=== PATIENT | female | born 1960 | race African-American/Black ===

== ENCOUNTER 2017-11-20 15:49 | Emergency (ER) | payer OTHER ==
[2017-11-20 16:50] LABS: #Eosinphils 0.1 thou/uL (0.0-0.7); #Lymphocytes 2.2 thou/uL (1.20-3.40); #Monocytes 0.5 thou/uL (0.11-0.59); #Neutrophils 3.1 thou/uL (1.40-6.50); %Basophils 0.5 % (0.0-1.0); %Eosinophils 1.5 % (0.0-10.0); %Lymphocytes 37.1 % (21.0-51.0); %Monocytes 7.6 % (0.0-10.0); Hematocrit 44.8 % (36.0-47.0); Mean Platelet Volume 8.7 fL (7.4-10.4); Red Blood Cell (RBC) Count 4.85 mill/uL (4.20-5.40); White Blood Cell (WBC) Count 5.8 thou/uL (4.8-10.8)
--- NOTE | 2017-11-20 17:06 | RAD ---
AP VIEW CHEST: 11/20/17 HISTORY: Dizziness. Syncope. AP view chest is obtained on 11/20/17. Comparison made to a previous exam from 08/27/14. AP view chest demonstrates the lungs to be well aerated. No evidence of active intrathoracic disease seen. No evidence of effusions, pneumonia, or pneumothorax seen. IMPRESSION: Unremarkable AP view chest. POS: [facility]
[2017-11-20 17:12] LABS: ALT (SGPT) 23 U/L (8-55); AST (SGOT) 25 U/L (5-34); Alkaline Phosphatase 157 U/L (40-150); Anion Gap 17 mmol/L (10-20); BUN (Urea Nitrogen) 9 mg/dL (9.8-20.1); Bilirubin, Total 0.4 mg/dL (0.2-1.2); CK (CPK) 70 U/L (29-168); Calc. Creatinine Clearance 0 mL/min (70-130); Calcium 9.7 mg/dL (7.8-10.44); Carbon Dioxide 21 mmol/L (22-29); Chloride 104 mmol/L (98-107); Estimated GFR-MDRD 90; Globulin 5.1 g/dL (2.4-3.5); Protein, Total 9.3 g/dL (6.0-8.3)
[2017-11-20 17:16] LABS: Troponin I 0.028 ng/mL (< 0.028)
== END 2017-11-21 01:03 | disposition home or self-care (01) ==
LOC: ERS 15:49
DX: R55 Syncope and collapse (principal); G40.909 Epilepsy, unspecified, not intractable, without status epilepticus; Z79.899 Other long term (current) drug therapy
CPT/HCPCS: 36415; 71010; 80053; 82553; 84484; 85025; 93005

== ENCOUNTER 2017-11-23 23:06 | Emergency (ER) | payer OTHER ==
[2017-11-24 01:35] LABS: Hematocrit 41.3 % (36.0-47.0); Red Blood Cell (RBC) Count 4.41 mill/uL (4.20-5.40); White Blood Cell (WBC) Count 5.7 thou/uL (4.8-10.8)
[2017-11-24 01:36] LABS: Anion Gap 14 mmol/L (10-20); BUN (Urea Nitrogen) 7 mg/dL (9.8-20.1); Calc. Creatinine Clearance 0 mL/min (70-130); Calcium 9.4 mg/dL (7.8-10.44); Carbon Dioxide 28 mmol/L (22-29); Chloride 102 mmol/L (98-107); Estimated GFR-MDRD 68
[2017-11-24 01:45] LABS: Neutrophil 40 % (42-75)
== END 2017-11-24 02:05 | disposition left against medical advice (07) ==
LOC: ERS 23:06
DX: Z53.21 Procedure and treatment not carried out due to patient leaving prior to being seen by health care provider (principal)
CPT/HCPCS: 36415; 80048; 85025; 86850; 86900; 86901

== ENCOUNTER 2017-12-09 19:06 | Inpatient (IN) | payer OTHER ==
[2017-12-09 19:42] LABS: #Basophils 0.1 thou/uL (0.0-0.2); #Eosinphils 0.1 thou/uL (0.0-0.7); #Lymphocytes 2.3 thou/uL (1.20-3.40); #Monocytes 0.3 thou/uL (0.11-0.59); #Neutrophils 2.7 thou/uL (1.40-6.50); %Basophils 1.5 % (0.0-1.0); %Monocytes 4.6 % (0.0-10.0); %Neutrophils 48.9 % (42.0-75.0); Hemoglobin 13.6 g/dL (12.0-16.0); Mean Corpuscular HGB CONC 34.1 g/dL (32.0-36.0); Mean Corpuscular Volume 93.6 fl (81.0-99.0); Mean Platelet Volume 8.3 fL (7.4-10.4); Platelet Count 279 thou/uL (130-400); RBC Distribution Width 13.8 % (11.5-14.5); Red Blood Cell (RBC) Count 4.26 mill/uL (4.20-5.40); White Blood Cell (WBC) Count 5.4 thou/uL (4.8-10.8)
[2017-12-09 20:06] LABS: ALT (SGPT) 31 U/L (8-55); AST (SGOT) 29 U/L (5-34); Albumin 3.8 g/dL (3.5-5.0); Alkaline Phosphatase 132 U/L (40-150); Anion Gap 15 mmol/L (10-20); BUN (Urea Nitrogen) 6 mg/dL (9.8-20.1); Bilirubin, Total 0.3 mg/dL (0.2-1.2); CK (CPK) 68 U/L (29-168); Calc. Creatinine Clearance 0 mL/min (70-130); Calcium 9.4 mg/dL (7.8-10.44); Carbon Dioxide 26 mmol/L (22-29); Chloride 104 mmol/L (98-107); Estimated GFR-MDRD Greater than 90; Globulin 5.2 g/dL (2.4-3.5); Glucose 108 mg/dL (70-105); Lipase 21 U/L (8-78); Potassium 3.5 mmol/L (3.5-5.1); Sodium 141 mmol/L (136-145)
[2017-12-09 20:09] LABS: CKMB 0.8 ng/mL (0-6.6); Troponin I 0.025 ng/mL (< 0.028)
--- NOTE | 2017-12-09 21:09 | RAD ---
PORTABLE CHEST ONE VIEW 12/09/17 at 8:45 p.m. HISTORY: Chest pain. FINDINGS: Comparison made with exam of 11/20/17. The heart size is normal. The lungs are expanded without focal areas of consolidation, pneumothorax o r pleural effusions. IMPRESSION: No radiographic evidence of acute cardiopulmonary process. POS: [facility]
[2017-12-10 00:50] LABS: Troponin I 0.031 ng/mL (< 0.028)
[2017-12-10] MEDS ORDERED: Clopidogrel Bisulfate 75 MG TAB ONE (01:29)
[2017-12-10] MEDS ORDERED: Bacitracin Zinc 1 Packet ONE (02:01)
[2017-12-10] MEDS ORDERED: Sucralfate 1 GM TAB PO SCH (02:30)
[2017-12-10] MEDS ORDERED: OXcarbazepine 300 MG TAB PO SCH ×3 (02:30→15:00)
[2017-12-10] MEDS ORDERED: Sucralfate 1 GM/10 ML UDCUP ONE (02:39)
[2017-12-10] MEDS ORDERED: Sucralfate 1 GM/10 ML UDCUP PO SCH (02:45)
[2017-12-10] MEDS ORDERED: Primidone 250 MG TAB PO SCH ×3 (03:00→15:00)
[2017-12-10 04:57] LABS: Troponin I 0.026 ng/mL (< 0.028)
[2017-12-10] MEDS ORDERED: Famotidine 20 MG TAB ONE (06:24)
[2017-12-10 09:11] VITALS: BMI 30.2
[2017-12-10] MEDS ORDERED: Ondansetron ODT 4 MG TAB PO PRN (10:20)
[2017-12-10] MEDS ORDERED: HYDROcodone/Acetaminophen 5/325 mg Tablet PO PRN (10:20)
[2017-12-10] MEDS ORDERED: Acetaminophen 325 MG TAB PO PRN (10:20)
[2017-12-10] MEDS ORDERED: Enoxaparin Sodium 40 MG/0.4 ML SYRINGE SC SCH (10:30)
[2017-12-10] MEDS ORDERED: FLU VACC QS2017-18 36 mo. & older 0.5 ML SYRINGE IM ONE (10:30)
[2017-12-10] MEDS ORDERED: OXcarbazepine 600 MG TAB PO SCH (10:45)
--- NOTE | 2017-12-10 13:51 | NM ---
CARDIAC SPECT WITH EF AND WALL MOTION: HISTORY: A 57-year-old female with chest pain and history of stroke. Adenosine sestamibi study is performed. The patient was injected with 27.0 mCi Technetium 99m sestamibi intravenously for stress images and t he patient was injected with 9.0 mCi Technetium 99m sestamibi intravenously for resting images. Multiple SPECT images in the short axis, vertical long axis, and horizontal long axis demonstrate no scan evidence for infarct or ischemia. TID 0.97. LHR 0.59. EDV 58 mL. EF is 73%. MYOCARDIAL PERFUSION WALL MOTION: Wall motion is normal. IMPRESSION: Normal cardiac SPECT with ejection fraction and wall motion. POS: [facility]
[2017-12-10] MEDS ORDERED: Enoxaparin Sodium 40 MG/0.4 ML SYRINGE ONE (13:52)
[2017-12-10 14:00] VITALS: BP 120/73; TEMP 97.9
--- NOTE | 2017-12-10 15:54 | HP ---
DATE OF ADMISSION: 12/10/2017 PRIMARY CARE PHYSICIAN: [facility] CHIEF COMPLAINT: Chest pain. HISTORY OF PRESENT ILLNESS: Ms. Finch is a 57-year-old female with history of seizure disorder, cereb rovascular disease, breast cancer and hyperlipidemia who presented to emergency department for acute onset of chest pain at 1800. She presented to the emergency department on 12/09/2017. She described the pain as being a sharp pain in the center of her chest. It was alleviated by sublingual nitro x1 and has not recurred. She denies any sweats, shortness of breath, nausea, vomiting, or diaphoresis. She has had some subjective fevers off and on, some abdominal pain, but no diarrhea or constipation. She has had a cough that is nonproductive. No hemoptysis. No shortness of breath. She states she had a stress test some time ago, but it does shocked repeatedly, she did have some kind of EMG or bee ething. She has had some history of rectal bleeding which is currently being worked up as an outpati ent. No other current complaints. PAST MEDICAL HISTORY: 1. Hyperlipidemia. 2. History of cerebrovascular disease, status post CVA in 2012. 3. Breast cancer, status post surgery and chemo remotely. 4. Seizure disorder. States last seizure was this morning 12/09/2017 because she did not get her me dicines on time in the ER. PAST SURGICAL HISTORY: 1. Cholecystectomy. 2. Mastectomy on the left. 3. Left lower extremity fracture repair. 4. Bilateral tubal ligation. HOME MEDICATIONS: 1. Primidone 250 mg p.o. t.i.d. 2. Oxcarbazepine 600 mg p.o. t.i.d. ALLERGIES: To ASPIRIN. She does not know what her reaction was. Last echocardiogram was in 2013 showed EF of 60%-65%, mild MR, PI, TR. FAMILY HISTORY: Negative for clotting or bleeding disorder. No immune dysfunction. Multiple family members with coronary has high blood pressure and diabetes. SOCIAL HISTORY: Negative for habits x3. REVIEW OF SYSTEMS: A 10-point review of systems was performed, negative for all systems except as st ated as per HPI. PHYSICAL EXAMINATION: VITAL SIGNS: Temperature 98.0, pulse 76, blood pressure 97/62, respiratory rate 18, satting 97% on r oom air. GENERAL: She is awake. She is alert. She is oriented x3. She is disheveled looking, -Ameri can female, appears in no acute distress. HEENT: Normocephalic, atraumatic. Pupils equal, react bilaterally. Mucous membranes moist. She shea s no visible lesions. No thrush. NECK: Supple. She has no evidence of JVD, thyromegaly, no carotid upstrokes. There are no bruits. CHEST: Lungs are clear. She has no wheezing, no rales, no rhonchi. LUNGS: Good air movement. Symmetrical chest excursion. No prolonged expiratory phase. CARDIOVASCULAR: She has normal S1, S2. No S3, S4. No audible murmurs. ABDOMEN: Obese, it is nontender, nondistended. She has no hepatosplenomegaly. There is no rebound, rigidity or guarding. There is normoactive bowel sounds present in all 4 quadrants. EXTREMITIES: No cyanosis, clubbing with trace pedal edema. She has 2+ peripheral pulses, dorsalis p chava and posterior tibial. SKIN: Warm with no appreciated rashes or lesions. MUSCULOSKELETAL: Normal to inspection. She has no inflamed joints. No palpable effusions. NEUROLOGIC: Cranial nerves II-XII are grossly intact. She has a normal speech pattern, she has no f ocal neurologic deficit 5/5 strength. LABORATORY EVALUATION: CMP is normal. Creatinine 0.76, BUN is 6, chloride 104, potassium 3.5 and ca lcium 9.4. Glucose 108. Liver functions normal. CBC is normal with a white blood count of 5.4, hem oglobin 13.6, hematocrit 39.9, platelet count of 279,000. CK-MB on presentation was 0.8, troponin I 0.025. Repeat troponins 0.031 and 0.026. Her chest x-ray is unremarkable. ASSESSMENT AND PLAN: 1. Chest pain, suspect noncardiac, negative biomarkers x3. We will get a nuclear stress test. 2. Hyperlipidemia, not on therapy. 3. History of cerebrovascular disease, status post cerebrovascular accident in 2012. She is allergi c to ASPIRIN and is not on anticoagulants or antiplatelets. 4. History of breast cancer, status post surgery and chemotherapy remotely. 5. History of seizure disorder, on oxcarbazepine and primidone. We will place her on observation. We will get a stress test today and if negative, we will let her g o home this afternoon.
--- NOTE | 2017-12-10 16:03 | DIS ---
DATE OF ADMISSION: 12/09/2017 DATE OF DISCHARGE: 12/10/2017 PRIMARY CARE PHYSICIAN: [facility] The patient was placed in observation before midnight on 12/09/2017 and sent home at 1500 hours. DISCHARGE DIAGNOSES: 1. Noncardiac chest pain. 2. Hyperlipidemia. 3. History of cerebrovascular disease. 4. History of breast cancer. 5. Seizure disorder. CONSULTATIONS: None. PROCEDURES: Nuclear stress test on 12/10/2017 that showed no areas of reversible ischemia and no isc hemic ST-T changes on EKG. HOSPITAL COURSE: Ms. Finch is a 57-year-old female who presented in the emergency de partment with acute onset of chest pain. It was located in the center of her chest and resolved with nitro. She was seen in the emergency department, workup negative and was placed in observation. She remained in the ER hold overnight, serial cardiac biomarkers were negative, and we were called fo r admission. Admitted the patient this morning. Since then she has had a nuclear stress test that was negative fo r inducible ischemia, reversible abnormalities or wall motion changes, and no ST-T changes on EKG. T he pain had resolved, not recurred, and she was discharged home in stable condition with outpatient cheyanne stevens. PHYSICAL EXAMINATION: The patient was seen and examined on the day of discharge. DISCHARGE PLAN AND DISPOSITION: Discussed with the patient at bedside. DISCHARGE MEDICATIONS: 1. Oxcarbazepine 600 mg p.o. t.i.d. 2. Primidone 250 mg p.o. t.i.d. DISCHARGE CONDITION: Good. DISPOSITION: Discharged home via private vehicle. DISCHARGE DIET: Heart healthy recommended. DISCHARGE ACTIVITY: As tolerated. FOLLOWUP APPOINTMENTS: Primary care physician within a week.
[2017-12-10] MEDS ORDERED: Famotidine 20 MG TAB PO SCH (21:00)
[2017-12-11] MEDS ORDERED: Enoxaparin Sodium 40 MG/0.4 ML SYRINGE SC SCH (09:00)
== END 2017-12-10 15:30 | disposition home or self-care (01) | DRG 313 ==
LOC: ERS 19:06 → UNDOADMIN 12-10 00:30 → ERHOLD 12-10 00:30
PROVIDERS: ADMIT Internal Medicine; ATTEND Internal Medicine
DX: R07.89 Other chest pain (principal); E78.5 Hyperlipidemia, unspecified; G40.909 Epilepsy, unspecified, not intractable, without status epilepticus; Z86.73 Personal history of transient ischemic attack (TIA), and cerebral infarction without residual deficits; Z85.3 Personal history of malignant neoplasm of breast
CPT/HCPCS: 36415; 71045; 78452; 80053; 82553; 83690; 84484; 85025; 93005; 93017; 94760; A9500; J1650

== ENCOUNTER 2018-01-07 12:55 | Emergency (ER) | payer OTHER | END 2018-01-07 13:55 | disposition home or self-care (01) | LOC: ERS 12:55 | DX: K02.9 Dental caries, unspecified (principal) | CPT/HCPCS: 99282 ==

== ENCOUNTER 2018-02-10 12:12 | Emergency (ER) | payer OTHER ==
[2018-02-10] MEDS ORDERED: Acetaminophen 500 MG TAB ONE ×2 (13:46→13:47)
== END 2018-02-10 13:45 | disposition home or self-care (01) ==
LOC: ERS 12:12
DX: K02.9 Dental caries, unspecified (principal); M79.1 Myalgia; Z86.73 Personal history of transient ischemic attack (TIA), and cerebral infarction without residual deficits
CPT/HCPCS: 99283

== ENCOUNTER 2018-04-05 12:03 | Emergency (ER) | payer OTHER ==
[2018-04-05] MEDS ORDERED: Acetaminophen 500 MG TAB ONE (13:20)
== END 2018-04-05 13:30 | disposition home or self-care (01) ==
LOC: ERS 12:03
DX: K03.81 Cracked tooth (principal); K02.9 Dental caries, unspecified; G40.909 Epilepsy, unspecified, not intractable, without status epilepticus; Z85.3 Personal history of malignant neoplasm of breast; Z86.73 Personal history of transient ischemic attack (TIA), and cerebral infarction without residual deficits
CPT/HCPCS: 99282

== ENCOUNTER 2018-05-14 10:14 | Outpatient (CLI) | payer OTHER | END 2018-05-14 10:15 | disposition home or self-care (01) | LOC: BICULT 10:14 | PROVIDERS: ATTEND Internal Medicine Gastroenterology | DX: Z12.31 Encounter for screening mammogram for malignant neoplasm of breast (principal); R94.5 Abnormal results of liver function studies; Z80.3 Family history of malignant neoplasm of breast; Z85.3 Personal history of malignant neoplasm of breast; Z90.49 Acquired absence of other specified parts of digestive tract; R93.2 Abnormal findings on diagnostic imaging of liver and biliary tract | CPT/HCPCS: 76705; 77067 ==

== ENCOUNTER 2018-05-31 16:38 | Emergency (ER) | payer OTHER | END 2018-05-31 17:35 | disposition home or self-care (01) | LOC: ERS 16:38 | DX: R07.89 Other chest pain (principal); Z87.891 Personal history of nicotine dependence; Z79.899 Other long term (current) drug therapy | CPT/HCPCS: 93005; 94760 ==

== ENCOUNTER 2019-04-16 10:11 | Emergency (ER) | payer OTHER ==
[2019-04-16] MEDS ORDERED: Acetaminophen 500 MG TAB ONE (10:46)
--- NOTE | 2019-04-17 14:37 | EKG ---
Test Reason : ER INDICATION Blood Pressure : / mmHG Vent. Rate : 064 BPM Atrial Rate : 064 BPM P-R Int : 160 ms QRS Dur : 068 ms QT Int : 446 ms P-R-T Axes : 040 000 005 degrees QTc Int : 460 ms Normal sinus rhythm Normal ECG Confirmed by KIM CABRERA D.O. ([id number]), web editor JOSHUA GARCIA ([id number]) on 04/17/2019 2:37:01 PM Referred By: REI Confirmed By:KIM CABRERA D.O.
== END 2019-04-16 10:55 | disposition home or self-care (01) ==
LOC: ERS 10:11
DX: R07.89 Other chest pain (principal); M54.2 Cervicalgia; M25.572 Pain in left ankle and joints of left foot; Z87.891 Personal history of nicotine dependence; Z79.899 Other long term (current) drug therapy
CPT/HCPCS: 93005

== ENCOUNTER 2019-04-16 11:58 | Outpatient (CLI) | payer OTHER ==
--- NOTE | 2019-04-16 12:45 | ULT ---
Abdominal ultrasound: 04/16/2019 COMPARISON: None HISTORY: Abnormal liver function tests TECHNIQUE: Multiplanar grayscale sonographic imaging of the abdomen obtained. FINDINGS: The pancreas is not well seen secondary to bowel gas. The hepatic parenchyma is echogenic and heterogeneous, limiting sonographic assessment. No discrete f ocal liver lesion is evident. Common bile duct measures approximately 5-6 mm. Gallbladder is surgically absent. Detailed assessment of the right kidney is limited. Right kidney measures approximately 9.1 cm in general scrap worker niocaudal dimension and demonstrates no stone, hydronephrosis, or mass. Left kidney measures 8.6 cm craniocaudal dimension and demonstrates no stone hydronephrosis or mass. Upper pole of left kidney is obscured by bowel gas. Spleen measures approximately 8.4 cm, within normal limits. Overall detail is limited secondary to body habitus and suboptimal patient mobility. IMPRESSION: Technically limited examination, demonstrating mild heterogeneity of the hepatic parenchy ma with no biliary dilatation. Status post cholecystectomy.
== END 2019-04-16 11:59 | disposition home or self-care (01) ==
LOC: ULT 11:58
PROVIDERS: ATTEND Physician Assistant Medical
DX: R94.5 Abnormal results of liver function studies (principal); R93.2 Abnormal findings on diagnostic imaging of liver and biliary tract; Z90.49 Acquired absence of other specified parts of digestive tract
CPT/HCPCS: 76700

== ENCOUNTER 2019-04-26 02:13 | Observation (INO) | payer OTHER ==
[2019-04-26 03:42] LABS: ALT (SGPT) 16 U/L (8-55); AST (SGOT) 17 U/L (5-34); Alkaline Phosphatase 143 U/L (40-150); Anion Gap 15 mmol/L (10-20); BUN (Urea Nitrogen) 8 mg/dL (9.8-20.1); Bilirubin, Total 0.2 mg/dL (0.2-1.2); Calc. Creatinine Clearance 0 mL/min (70-130); Calcium 8.9 mg/dL (7.8-10.44); Carbon Dioxide 25 mmol/L (22-29); Chloride 105 mmol/L (98-107); Estimated GFR-MDRD Greater than 90; Globulin 4.3 g/dL (2.4-3.5); Glucose 93 mg/dL (70-105); Potassium 3.8 mmol/L (3.5-5.1); Protein, Total 8.3 g/dL (6.0-8.3); Sodium 141 mmol/L (136-145)
[2019-04-26 03:46] LABS: Eosinophils 1 % (0-10); Hemoglobin 12.5 g/dL (12.0-16.0); Lymphocytes 47 % (21-51); MDiff Complete? YES; Mean Corpuscular HGB CONC 34.1 g/dL (32.0-36.0); Mean Corpuscular Hemoglobin 31.5 pg (27.0-31.0); Mean Corpuscular Volume 92.3 fL (78.0-98.0); Mean Platelet Volume 9.2 fL (7.4-10.4); Monocytes 4 % (0-10); Neutrophil 47 % (42-75); Platelet Count 200 thou/uL (130-400); RBC Distribution Width 13.1 % (11.5-14.5); Red Blood Cell (RBC) Count 3.98 mill/uL (4.20-5.40); White Blood Cell (WBC) Count 6.5 thou/uL (4.8-10.8)
[2019-04-26 05:20] LABS: Troponin I 0.045 ng/mL (< 0.028)
--- NOTE | 2019-04-26 06:40 | PDOC.FPRHP ---
- History of Present Illness Chief Complaint: headache History of Present Illness: 58 yo AAF with PMH of prediabetes, HLD, seizure d/o, and breast CA s/p chemotherapy and surgery presenting to ER with CC of ZARCO. Pt is a terrible historian and unable to consistently answer questions. Pt unable to describe or qualify her ZARCO but notes it improved with intervention in the ER. Pt had CT brain which was normal and refused LP. At initial visit with triage nurse, pt stated she had CP. When asked, she states prior to arriving she had a sharp pain on the right side of her chest that improved with no intervention. No associated symptoms and no recurrence. Pt states "I was not worried about the chest pain." ED Course: Pt had lab work and imaging. No medications or interventions made. - Allergies/Adverse Reactions Allergies Allergy/AdvReac Type Severity Reaction Status Date / Time aspirin Allergy Unknown Verified 07/04/14 20:38 - Home Medications Medication Instructions Recorded Confirmed Type OXcarbazepine [Trileptal] 600 mg PO TID #0 tab 07/06/14 04/26/19 Rx Primidone [Mysoline] 375 mg PO BID 12/10/17 04/26/19 History - History PMHx: Seizure d/o, last seizure in 2017 per pt, HLD, prediabetes, breast CA PSHx: Cholecystectomy, left mastectomy, LLE ortho repair, BTL FHx: unable to provide Social: Denies tobacco, EtOH, or illicit drug use. - Review of Systems General: denies: fever/chills, fatigue ENT: denies: nasal congestion, rhinorrhea Respiratory: denies: cough, shortness of breath Cardiovascular: reports: chest pain. denies: palpitation, paroxysmal nocturnal dyspnea Gastrointestinal: denies: nausea, vomiting, diarrhea Musculoskeletal: reports: pain Neurological: denies: syncope, seizure - Vital signs BP: 134/81 HR: 81 RR: 17 Tmax: 98.1 Pox: 99% on RA Wt: 73kg - Physical Exam Constitutional: NAD, awake, alert and oriented HEENT: normocephalic and atraumatic, conjunctiva clear, oropharynx clear Heart: RRR, normal S1/S2, no murmurs/rubs/gallops, no edema Lungs: CTAB, no respiratory distress, good air movement Abdomen: soft, non-tender Musculoskeletal: normal structure, ROM grossly normal Neurological: no focal deficit Psychiatric: normal mood and affect FMR H&P: Results - Labs Result Diagrams: 04/26/19 03:08 04/26/19 03:08 Lab results: WBC 6.5 thou/uL (4.8-10.8) 04/26/19 03:08 Hgb 12.5 g/dL (12.0-16.0) 04/26/19 03:08 Hct 36.7 % (36.0-47.0) 04/26/19 03:08 MCV 92.3 fL (78.0-98.0) 04/26/19 03:08 Plt Count 200 thou/uL (130-400) 04/26/19 03:08 Sodium 141 mmol/L (136-145) 04/26/19 03:08 Potassium 3.8 mmol/L (3.5-5.1) 04/26/19 03:08 Chloride 105 mmol/L (98-107) 04/26/19 03:08 Carbon Dioxide 25 mmol/L (22-29) 04/26/19 03:08 BUN 8 mg/dL (9.8-20.1) L 04/26/19 03:08 Creatinine 0.76 mg/dL (0.6-1.1) 04/26/19 03:08 Glucose 93 mg/dL (70-105) 04/26/19 03:08 Calcium 8.9 mg/dL (7.8-10.44) 04/26/19 03:08 Total Bilirubin 0.2 mg/dL (0.2-1.2) 04/26/19 03:08 AST 17 U/L (5-34) 04/26/19 03:08 ALT 16 U/L (8-55) 04/26/19 03:08 Alkaline Phosphatase 143 U/L (40-150) 04/26/19 03:08 CK-MB (CK-2) 1.0 ng/mL (0-6.6) 04/26/19 03:08 Serum Total Protein 8.3 g/dL (6.0-8.3) 04/26/19 03:08 Albumin 4.0 g/dL (3.5-5.0) 04/26/19 03:08 - EKG Interpretation EKG: NSR, no ST changes - Radiology Interpretation CT scan - head Status: image reviewed by me (No acute process) FMR H&P: A/P - Problem List (1) Elevation of cardiac enzymes Current Visit: No Status: Acute Code(s): R74.8 - ABNORMAL LEVELS OF OTHER SERUM ENZYMES (2) Seizure disorder Current Visit: Yes Status: Acute Code(s): G40.909 - EPILEPSY, UNSP, NOT INTRACTABLE, WITHOUT STATUS EPILEPTICUS - Plan 1. Elevated troponin -Pt denies CP and had resolution of symptoms that precipitated ER visit without any intervention whatsoever. Incidentally, pt found to have indeterminate troponin. -Will short stay/observe pt for repeat cardiac enzymes. -Pt had normal stress test in December 2017. HEART score of 2 due to age and HLD. -Other risk factor stratification can be done in outpatient setting. 2. Seizure disorder -Resume home meds. -Seizure precautions. Disposition/LOS: Observation for anticipated length of stay less than two midnights. Addendum - Attending - Attending Attestation Date/Time: 04/26/19 1029 I personally evaluated the patient and discussed the management with Dr. Stock. I agree with the History, Examination, Assessment and Plan documented above with any addition or exceptions noted below. Patient here with incidental lab finding and patient denies chest pain. No EKG changes. R/O ACS with serial troponins and will discharge home with any further workup to be done in outpatient setting.
[2019-04-26] MEDS ORDERED: Ondansetron PF 4 MG/2 ML Vial IVP PRN ×2 (07:11→07:14)
[2019-04-26] MEDS ORDERED: Acetaminophen 325 MG TAB PO PRN ×2 (07:12→07:14)
[2019-04-26] MEDS ORDERED: Ondansetron ODT 4 MG TAB PO PRN ×2 (07:12→07:14)
[2019-04-26] MEDS ORDERED: Lorazepam 2 MG/ML VIAL SLOW IVP PRN (07:14)
[2019-04-26 08:09] VITALS: BMI 35.6
[2019-04-26 08:39] LABS: Troponin I 0.057 ng/mL (< 0.028)
[2019-04-26] MEDS ORDERED: OXcarbazepine 300 MG TAB PO SCH (09:00)
[2019-04-26] MEDS ORDERED: Primidone 250 MG TAB PO SCH (09:00)
[2019-04-26] MEDS ORDERED: Enoxaparin Sodium 40 MG/0.4 ML SYRINGE SC SCH (09:00)
[2019-04-26 11:36] LABS: CKMB 1.1 ng/mL (0-6.6)
--- NOTE | 2019-04-26 11:46 | CT ---
PRELIMINARY REPORT/[facility]/EMERGENCY AFTER HOURS PROCEDURE: EXAM: CT Head Without Contrast EXAM DATE/TIME: 04/26/2019 3:49 AM CLINICAL HISTORY: 58 years old, female; Pain and signs and symptoms; Dizziness; Patient HX: 58 year old female with com plaint of bilateral frontal throbbing feeling to the head that started approximately 2-3 hours prior to arrival in er after arguing with her grandson. Patient states headache presented as gradual in marcia ure, similar to previous headaches and doesn't report worse headache of life. Patient denies any asso ciated nausea, vomiting, speech changes, chest pain, or shortness of breath. No photophobia or phonop hobia TECHNIQUE: Imaging protocol: Axial computed tomography images of the head without contrast. COMPARISON: No relevant prior studies available. FINDINGS: Brain: Scattered areas of hypoattenuation, likely chronic small vessel ischemic change, demyelination , or gliosis. Mild cerebellar atrophy. No mass, hemorrhage, or acute origin. Ventricles: Normal. Bones/joints: Normal. Sinuses: Normal as visualized. Mastoid air cells: Normal as visualized. Soft tissues: Unremarkable. Vasculature: Atherosclerotic vascular calcifications. IMPRESSION: No acute intracranial abnormality. Thank you for allowing us to participate in the care of your patient. Dictated and Authenticated by: Mazin Morales MD 04/26/2019 4:03 AM Central Time ([place] & [place]) FINAL REPORT CT BRAIN WITHOUT CONTRAST: I agree with the preliminary report given by Dr. Mazin Morales of [facility]. POS: [facility]
[2019-04-26 12:14] VITALS: BP 114/65; TEMP 98.1
--- NOTE | 2019-04-26 16:02 | DIS ---
DATE OF ADMISSION: 04/26/2019 DATE OF DISCHARGE: 04/26/2019 ADMITTING ATTENDING: Bandar Ravi MD DISCHARGE ATTENDING: Bandar Ravi MD ADMITTING RESIDENT: Franky Stock MD DISCHARGE RESIDENT: Gretchen Gayle MD CONSULTS: None. PROCEDURES: None. PRIMARY DIAGNOSES: 1. Atypical chest pain, likely musculoskeletal pain 2. Headache. 3. Elevated troponin. SECONDARY DIAGNOSIS: Seizure disorder. DISCHARGE MEDICATIONS: 1. Primidone 375 mg p.o. b.i.d. 2. Trileptal 600 mg p.o. t.i.d. DISCONTINUED MEDICATIONS: None HISTORY OF PRESENT ILLNESS AND HOSPITAL COURSE: This is a 58-year-old female who presented to the ER due to a headache. The patient's headache resolved spontaneously without any intervention. Then, the patient casually mentioned to the nurse that she had previously been having a sharp right-sided chest pain that resolved on its own as well, only lasted a few seconds. The patient did not have any current chest pain at the time of the ER visit. However, the patient had cardiac enzymes that were checked and her troponin was mildly elevated at 0.033. The patient chronically has mild elevation of her troponins. These were trended throughout her hospitalization and it peaked at 0.057. The patient had no chest pain during her hospitalization. The patient had a heart score of 2 and the patient had a prior normal stress test in 2018. As the troponin downtrended and there were no EKG changes, the patient was discharged home with instructions to follow up outpatient for an outpatient stress test. DISPOSITION: Stable. DISCHARGE INSTRUCTIONS: 1. Location: Home. 2. Diet: Heart healthy. 3. Activity: As tolerated. 4. Followup: Follow up with [facility] within 7 days for possible outpatient stress test. Job ID: [id number] MTDD
== END 2019-04-26 14:47 | disposition home or self-care (01) ==
LOC: ERS 02:13 → 2SW 06:14
PROVIDERS: ADMIT Family Medicine; ATTEND Family Medicine
DX: R74.8 Abnormal levels of other serum enzymes (principal); R07.89 Other chest pain; R51 Headache; G40.909 Epilepsy, unspecified, not intractable, without status epilepticus; E78.5 Hyperlipidemia, unspecified; R73.03 Prediabetes; Z85.3 Personal history of malignant neoplasm of breast; Z79.899 Other long term (current) drug therapy; Z88.8 Allergy status to other drugs, medicaments and biological substances
CPT/HCPCS: 36415; 70450; 80053; 82553; 84484; 85025; 93005; 94760; G0378

== ENCOUNTER 2019-05-07 18:32 | Observation (INO) | payer OTHER ==
--- NOTE | 2019-05-07 18:50 | RAD ---
RADIOGRAPH CHEST 2 VIEWS: DATE: 05/07/2019 HISTORY: Chest pain FINDINGS: There is no airspace density, pulmonary edema, pleural effusion, pneumothorax, or cardiomegaly. IMPRESSION: No acute cardiopulmonary findings.
[2019-05-07 19:18] LABS: #Basophils 0.1 thou/uL (0.0-0.2); #Eosinphils 0.1 thou/uL (0.0-0.7); #Lymphocytes 2.4 thou/uL (1.20-3.40); #Monocytes 0.5 thou/uL (0.11-0.59); %Basophils 1.3 % (0.0-1.0); %Eosinophils 2.4 % (0.0-10.0); %Lymphocytes 39.6 % (21.0-51.0); %Monocytes 7.5 % (0.0-10.0); %Neutrophils 49.3 % (42.0-75.0); Hemoglobin 12.8 g/dL (12.0-16.0); Mean Corpuscular HGB CONC 33.9 g/dL (32.0-36.0); Mean Corpuscular Volume 91.4 fL (78.0-98.0); Mean Platelet Volume 8.9 fL (7.4-10.4); Platelet Count 234 thou/uL (130-400); RBC Distribution Width 13.1 % (11.5-14.5); Red Blood Cell (RBC) Count 4.13 mill/uL (4.20-5.40); White Blood Cell (WBC) Count 6.1 thou/uL (4.8-10.8)
[2019-05-07 19:47] LABS: ALT (SGPT) 13 U/L (8-55); AST (SGOT) 17 U/L (5-34); Alkaline Phosphatase 150 U/L (40-150); Anion Gap 15 mmol/L (10-20); BUN (Urea Nitrogen) 6 mg/dL (9.8-20.1); Bilirubin, Total 0.2 mg/dL (0.2-1.2); Calc. Creatinine Clearance 0 mL/min (70-130); Calcium 8.9 mg/dL (7.8-10.44); Carbon Dioxide 25 mmol/L (23-31); Chloride 101 mmol/L (98-107); Estimated GFR-MDRD Greater than 90; Globulin 5.1 g/dL (2.4-3.5); Glucose 76 mg/dL (80-115); Potassium 3.6 mmol/L (3.5-5.1); Protein, Total 9.1 g/dL (6.0-8.3); Sodium 137 mmol/L (136-145)
[2019-05-07 20:09] LABS: CKMB 0.9 ng/mL (0-6.6)
--- NOTE | 2019-05-07 22:29 | CT ---
CT BRAIN NONCONTRAST: DATE: 05/07/2019 HISTORY: 59-year-old female with vertigo FINDINGS: There is no evidence of acute intra-axial or extra-axial hemorrhage. There is no midline shift or any other mass effect. There is no extra-axial fluid collection. There is no evidence of obstructive hydrocephalus. Calvarium is intact. There is diffuse brain parenchymal volume loss. There are low att enuation areas in the white matter. These are nonspecific, but in a patient of this age, they are probably chronic ischemic white matter changes due to microvascular atherosclerosis. The cerebellum i s diffusely atrophic. There are 2 partially healed, occluded right-sided katya holes, one in the right frontal bone and one in the right parietal bone. There is no interval change overall. IMPRESSION: 1) No acute intracranial findings. 2) cerebellar atrophy. Differential diagnosis includes chronic Dilantin use and chronic ethanol abuse . 3) chronic ischemic white matter changes. 4) 2 old right-sided katya holes.
[2019-05-07 22:33] LABS: Acetaminophen Less than 6.0 mcg/mL (10.0-30.0); Alcohol Less than 10 mg/dL (Less than 10); Salicylate Less than 8.0 mg/dL (15.0-30.0)
[2019-05-07 22:43] LABS: Amphetamine Not Detected (NotDetected); Barbiturates Screen Detected (NotDetected); Benzodiazepine Screen Not Detected (NotDetected); Cocaine Metabolite Screen Not Detected (NotDetected); Medtox Control Line Valid? VALID (VALID); Medtox Reader # READER 1; Methadone Not Detected (NotDetected); Methamphetamine Not Detected (NotDetected); Opiate Screen Not Detected (NotDetected); Oxycodone Screen Not Detected (NotDetected); Phencyclidine (PCP) Not Detected (NotDetected); THC/Cannabinoid Screen Not Detected (NotDetected); Tricyclic Screen Not Detected (NotDetected)
--- NOTE | 2019-05-07 22:43 | PDOC.FPRHP ---
- History of Present Illness Chief Complaint: dizziness and chest pain History of Present Illness: 59YOF with a PMH significant for HLD and a seizure disorder who presented to the ER initially due to "dizziness" that began earlier today when she was leaving a friend's house. Of note, the patient was oriented x3 on exam but slightly drowsy appearing and could not recall many details when providing a history. She describes the dizziness as lightheadedness rather than vertigo as she denies feeling like the room is spinning. She denies any associated nausea or vomiting and also denies any falls or seizures. The patient reports that she then called a medicare sales and service representative who instructed her to go to the ER for evaluation. In addition, while in the waiting room at the ER the patient reported that she developed sudden onset crushing substernal chest pain that lasted a few minutes before subsiding on its own without any interventions. She denied any associated symptoms other than her persistent dizziness. She denies any previous h/o UT but has had a stroke. Of note, the patient was recently discharged on 04/26/19 after being admitted for almost the exact same presentation. Per chart review she has yet to follow- up with her PCP and it was recommended upon discharge from that stay that she f/ u with within 1 week of d/c for a likely OP stress test. ED Course: plavix 75 mg - Allergies/Adverse Reactions Allergies Allergy/AdvReac Type Severity Reaction Status Date / Time aspirin Allergy Unknown Verified 07/04/14 20:38 - Home Medications Medication Instructions Recorded Confirmed Type OXcarbazepine [Trileptal] 600 mg PO TID #0 tab 07/06/14 05/08/19 Rx Primidone [Mysoline] 250 mg PO BID 12/10/17 05/08/19 History - History PMHx: seizure disorder, h/o CVA in 2013, h/o breast CA s/p chemoradiation & L lumpectomy PSHx: L lumpectomy, tali, BTL FHx: Father from a massive UT at unknown age. Social: Denies T/A/D use. - Review of Systems General: denies: fever/chills, weight/appetite/sleep changes Eyes: denies: eye pain, vision changes ENT: denies: nasal congestion Respiratory: denies: shortness of breath Cardiovascular: reports: chest pain Gastrointestinal: denies: nausea, vomiting, abdominal pain Genitourinary: denies: incontinence, dysuria Skin: denies: rashes, lesions Musculoskeletal: reports: pain (left arm), swelling (chronic L arm swelling with lymphedema following L breast surgery) Neurological: reports: other (dizziness). denies: syncope, seizure Psychological: reports: anxiety. denies: depression - Vital signs BP: 157/97 HR: 80 RR: 18 Tmax: 98.5F Pox: 100% on RA Wt: 72.57 kg - Physical Exam Constitutional: NAD, well developed, other (oriented and answering questions appropirately but short term memory slightly impaired) HEENT: normocephalic and atraumatic, grossly normal vision, grossly normal hearing Neck: supple, FROM Heart: RRR, normal S1/S2, no murmurs/rubs/gallops, no edema Lungs: CTAB, no respiratory distress, good air movement, no rales/rhonchi, no wheezing Musculoskeletal: normal structure, ROM grossly normal Neurological: no focal deficit, CN II-XII intact (grossly), normal sensation Skin: no rash/lesions, good turgor Heme/Lymphatic: no unusual bruising or bleeding, no purpura, no petechia Psychiatric: other (slightly impaired recent memory) FMR H&P: Results - Labs Result Diagrams: 05/07/19 19:04 05/07/19 19:04 Lab results: WBC 6.1 thou/uL (4.8-10.8) 05/07/19 19:04 Hgb 12.8 g/dL (12.0-16.0) 05/07/19 19:04 Hct 37.7 % (36.0-47.0) 05/07/19 19:04 MCV 91.4 fL (78.0-98.0) 05/07/19 19:04 Plt Count 234 thou/uL (130-400) 05/07/19 19:04 Neutrophils % 49.3 % (42.0-75.0) 05/07/19 19:04 Sodium 137 mmol/L (136-145) 05/07/19 19:04 Potassium 3.6 mmol/L (3.5-5.1) 05/07/19 19:04 Chloride 101 mmol/L (98-107) 05/07/19 19:04 Carbon Dioxide 25 mmol/L (23-31) 05/07/19 19:04 BUN 6 mg/dL (9.8-20.1) L 05/07/19 19:04 Creatinine 0.75 mg/dL (0.6-1.1) 05/07/19 19:04 Glucose 76 mg/dL (80-115) L 05/07/19 19:04 Calcium 8.9 mg/dL (7.8-10.44) 05/07/19 19:04 Total Bilirubin 0.2 mg/dL (0.2-1.2) 05/07/19 19:04 AST 17 U/L (5-34) 05/07/19 19:04 ALT 13 U/L (8-55) 05/07/19 19:04 Alkaline Phosphatase 150 U/L (40-150) 05/07/19 19:04 CK-MB (CK-2) 0.9 ng/mL (0-6.6) 05/07/19 19:04 Serum Total Protein 9.1 g/dL (6.0-8.3) H 05/07/19 19:04 Albumin 4.0 g/dL (3.4-4.8) 05/07/19 19:04 - EKG Interpretation EKG: NSR w/ non-specific T wave changes - Radiology Interpretation CT scan - head Status: report reviewed by me (no acute IC process; chronic ischemic changes & cerebellar atrophy) Chest x-ray Status: report reviewed by me (no acute process) FMR H&P: A/P - Problem List (1) Chest pain Current Visit: Yes Status: Acute Code(s): R07.9 - CHEST PAIN, UNSPECIFIED (2) Seizure disorder Current Visit: No Status: Acute Code(s): G40.909 - EPILEPSY, UNSP, NOT INTRACTABLE, WITHOUT STATUS EPILEPTICUS (3) Hyperlipidemia Current Visit: No Status: Chronic Code(s): E78.5 - HYPERLIPIDEMIA, UNSPECIFIED (4) Dizziness Current Visit: Yes Status: Acute Code(s): R42 - DIZZINESS AND GIDDINESS - Plan 59YOF with a PMH significant for a seizure disorder & a prior CVA who presented with a CC of dizziness who subsequently developed chest pain that has since resolved. Atypical chest pain 2/2 MSK strain from possible seizure vs. ACS - The patient developed chest pain while sitting in the waiting room of the ED that has subsided by the time of her exam. Denies any cardiac history but was recently discharged after being admitted for chest pain from MSK strain and was instructed to follow-up as an outpatient for stress testing. Her last stress test was over 1.5 years ago per chart review. However, her heart score was calculated at a 5 given her risk factors of a prior CVA, HLD & FH of UT as her initial troponin was slightly elevated at 0.036. EKG showed nonspecific ST changes. Will admit to telemetry for observation overnight and plan to stress in the AM due to poor outpatient follow-up. - NPO at midnight pending AM stress. PRN nitrostat should chest pain return. seizure disorder - Will resume home meds but will also check med blood levels to ensure compliance and a prolactin level as patient appeared slightly post-ictal on exam with poor remote memory and delay in answering questions. However, even if negative prolactin, cannot r/o a seizure as time of symptom onset is unknown. - Sz precautions ordered as well. HLD - Noted per chart review from most recent labwork in clinic. Will start on a statin, especially given h/o CVA. h/o prior CVA - Not on ASA as patient reports it interacts with her home meds. Will start on ASA therapy if no interactions with meds are found & statin as well. FMR H&P: Upper Level - Pertinent history 59F presenting to ED with dizziness and CP. Patient is a very poor historian and unable to answer questions consistently. Recently d/c from hospital on 04/26 for similar presentation. She did not follow up with PCP or get a stress test in the OP setting. Pt c/o substernal crushing chest pain that started today. Preceded by this dizziness. Denies room spinning. Denies any SOB, nausea, vomiting, falls, seizures. Hx of prior stroke in 2012 with no persistent deficits. Hx of Breast CA s/p chemo and radiation. ED: plavix 75mg - Pertinent findings 157/97 mmHg 81bpm 18RR 97% on RA 98.1F Gen: A&Ox3 but appears groggy CV: RRR; no murmurs Pulm: CTA-B Abd: soft; nonTTP, no guarding Neuro: CNII-XII intact Ext: no cyanosis; LUE lymphedema 2/2 mastectomy Chest XR: no acute findings CT head: no acute findings EKG: NSR; no ST changes CBC, CMP wnl trop: .036 - Plan Date/Time: 05/07/19 [id number] I, Daniel Walsh, have evaluated this patient and agree with findings/plan as outlined by risk management internship resident. Pertinent changes/additions are listed here. Atypical chest pain: given recent admission for same issue we will plan to stress her in the morning. Troponin is at her baseline but we will trend. Heart score of 5. Chest pain has terminated without any intervention. Will have oxygen and nitrates available PRN. Last stress test was in December of 2017. Per chart review in [facility], she has had poor f/u in OP setting and has not been seen since last hospital discharge. Seizure DO: patient almost appears to be in a post-ictal state given her delay in answering questions and poor short term memory. She denies any seizure or losing track of time. She lives at home by herself. Outside of window for a prolactin draw. Neuro exam is normal with no deficits and CT brain negative.
[2019-05-07] MEDS ORDERED: Clopidogrel Bisulfate 75 MG TAB ONE (22:47)
[2019-05-07 23:55] LABS: Troponin I 0.039 ng/mL (< 0.028)
[2019-05-08] MEDS ORDERED: Nitroglycerin 0.4 MG TAB (25 Tab Bottle) PO PRN (00:52)
[2019-05-08] MEDS ORDERED: Acetaminophen 325 MG TAB PO PRN (00:52)
[2019-05-08 00:56] VITALS: BMI 34.7
[2019-05-08] MEDS ORDERED: OXcarbazepine 300 MG TAB PO SCH (02:00)
[2019-05-08] MEDS: Primidone 250 MG TAB PO SCH ×2 (02:08→02:11)
[2019-05-08 02:15] LABS: Troponin I 0.035 ng/mL (< 0.028)
--- NOTE | 2019-05-08 06:39 | PDOC.FM ---
- Subjective Subjective: No overnight events. Chest pain has resolved. Denies SOB. No other concerns at this time. Pt is NPO for stress test. - Objective MAR Reviewed: Yes Vital Signs & Weight: Vital Signs (12 hours) Temp Pulse Resp BP BP BP Pulse Ox 05/08/19 00:40 97.8 F 89 18 135/71 149/89 H 151/84 H 97 Weight Weight 75.296 kg I&O: 05/06/19 05/07/19 05/08/19 06:59 06:59 06:59 Output Total 500 Balance -500 Result Diagrams: 05/07/19 19:04 05/07/19 19:04 Phys Exam - Physical Examination Constitutional: NAD HEENT: moist MMs Neck: supple Respiratory: no wheezing, clear to auscultation bilateral Cardiovascular: RRR, no significant murmur Gastrointestinal: soft, non-tender, positive bowel sounds Musculoskeletal: no edema Neurological: moves all 4 limbs Psychiatric: normal affect, A&O x 3 Skin: normal turgor Dx/Plan (1) Chest pain Code(s): R07.9 - CHEST PAIN, UNSPECIFIED Status: Acute (2) Dizziness Code(s): R42 - DIZZINESS AND GIDDINESS Status: Acute (3) Elevation of cardiac enzymes Code(s): R74.8 - ABNORMAL LEVELS OF OTHER SERUM ENZYMES Status: Acute (4) Hypokalemia Code(s): E87.6 - HYPOKALEMIA Status: Acute (5) Seizure disorder Code(s): G40.909 - EPILEPSY, UNSP, NOT INTRACTABLE, WITHOUT STATUS EPILEPTICUS Status: Acute (6) Sepsis Code(s): A41.9 - SEPSIS, UNSPECIFIED ORGANISM Status: Acute (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 EKG w/ nonspecific ST changes - Stress test today - PRN nitrostat Seizure disorder - Continue home meds - Prolactin 7.38 - Seizure precautions HLD - Continue statin, started this hospitalization h/o prior CVA - Continue ASA and statin, both started this hospitalization
[2019-05-08] MEDS: OXcarbazepine 300 MG TAB PO SCH ×2 (08:41→16:00)
[2019-05-08] MEDS ORDERED: Primidone 250 MG TAB PO SCH ×3 (09:00→21:00)
[2019-05-08] MEDS ORDERED: Enoxaparin Sodium 40 MG/0.4 ML SYRINGE SC SCH (09:00)
[2019-05-08 12:54] VITALS: BP 102/68; TEMP 97.5
--- NOTE | 2019-05-08 13:14 | NM ---
EXAM: Nuclear medicine cardiac SPECT with EF and wall motion: HISTORY: Chest pain, history of stroke, family history of coronary artery disease Protocol: Exam was performed using Lexiscan protocol. Patient was injected with 31.7 mCi technetium 99m sestamibi intravenously for stress images. Patient was injected with 10.5 mCi technetium 99m sestamibi intravenously for resting images. Multiple SPECT images are performed in the short axis, vertical long axis, and horizontal long axis. FINDINGS: No scan evidence for infarct or ischemia. TID:1.14 LHR:0.74 EDV:58 mL EF:66% Wall motion:Within normal limits IMPRESSION: Unremarkable stress rest myocardial scan with wall motion and ejection fraction.
[2019-05-08] MEDS ORDERED: ADENOSINE 60 MG/20 ML VIAL ONE (20:08)
[2019-05-08] MEDS ORDERED: Atorvastatin Calcium 40 MG TAB PO SCH (21:00)
--- NOTE | 2019-05-09 14:00 | DIS ---
DATE OF ADMISSION: 05/07/2019 DATE OF DISCHARGE: 05/08/2019 DISCHARGE ATTENDING: Prasanth Malvae MD CONSULTS: None. PROCEDURES: 1. Chest x-ray on 05/07/2019, no acute cardiopulmonary findings. 2. Brain CT on 05/07/2019, no acute intracranial findings. Cerebellar atrophy. Differential diagnoses includes chronic Dilantin use and chronic ethanol abuse. Chronic ischemic white matter changes. Two old right-sided bur holes. 3. Nuclear stress test on 05/08/2019, unremarkable stress myocardial scan with wall motion and ejection fraction. DISCHARGE MEDICATIONS: 1. Atorvastatin 40 mg at bedtime. 2. Trileptal 600 mg t.i.d. 3. Primidone 250 mg b.i.d. DISCONTINUED MEDICATIONS: None. HPI/HOSPITAL COURSE: Ms. Finch is a 59-year-old female with past medical history of hyperlipidemia and seizure disorder, who presented to the ED due to dizziness and suddenly developed crushing substernal chest pain in the waiting room. The patient recently was admitted 04/26/2019 for similar symptoms and had plan to get outpatient stress test, but has not been done yet. In the ED, the patient received 75 mg of Plavix. She takes aspirin at home daily. Her EKG showed normal sinus rhythm with nonspecific T-wave changes, unchanged from prior EKG. Troponin was at baseline and stable throughout hospitalization with values 0.036, 0.039, and 0.035. Her HeartScore was 5. Chest pain terminated without any intervention. Her stress test showed no reversible change. DISPOSITION: Stable. DISCHARGE INSTRUCTIONS: 1. Location: Home. 2. Diet: Heart healthy. 3. Activity: No restriction. 4. Follow up with [place] [facility] and physicians within 3 to 7 days. Job ID: [id number]
--- NOTE | 2019-05-10 13:55 | HP ---
ADDENDUM: Please see the note history and physical done by Dr. Mccall, which I agree also. Please see the progress note from Dr. Navarro which I agree. The patient was seen, evaluated, discussed and examined with the residents by bedside. A 59-year-old female with history of seizure disorder, who was just in the hospital actually couple of weeks ago. Never had a stress test as an outpatient. It sounds like she was dizzy and then actually in the waiting room. In the emergency room, she started having chest pain. Seems somewhat mentally slow or just extremely introverted and is not a very good communicator, but it sounds like she is frustrated to figure out why this is happening to her and so we are getting a stress test on her, although currently not having chest pain. It also sounds like maybe she had a stress test a year ago. Otherwise, she is describing and again not really good historian that she cannot take aspirin, so was given Plavix in the emergency room. Past medicines, allergies, past medical history, past surgical history, family history, social history, review of systemsall per Dr. Mccall's history and physical for which I reviewed and agreed. Of note, there are a lot of cardiovascular risks in her family. PHYSICAL EXAMINATION: VITAL SIGNS: Afebrile. Vital signs are stable. Blood pressure is a little bit elevated. Not appear to be in any respiratory distress. GENERAL: She is alert and oriented x3, although again does seem somewhat slowed and very flat affect. ENT: Otherwise is within normal limits. NECK: No JVD, lymphadenopathy, or bruits. CHEST: Clear. CARDIOVASCULAR: Regular rate and rhythm. ABDOMEN: Benign. EXTREMITIES: Show no edema. Initial blood workup significant for normal CBC, normal chemistries. Cardiac enzymes were normal. EKG shows nonspecific ST changes. CT of the head was normal other than some chronic changes. ASSESSMENT AND PLAN: 1. Chest pain with strong family history of coronary artery disease. 2. Dizziness, seems to resolve. 3. Seizure disorder, seems unstable. States she has not had a seizure in a while. PLAN: Observe her and we are doing a stress test on her. We will continue Plavix in the meantime. Certainly, if the stress test shows any abnormalities, we had Cardiology involved. If it is normal, may consider proton pump inhibitor and assume this is reflux. I will also get medication blood levels for her seizure medications. Make sure she is compliant on those. Job ID: [id number]
--- NOTE | 2019-05-12 12:08 | STRESS ---
Acquisition Time: 2019-05-08 11:27:55 Total Exercise Time: 00:04:00 Test Indications: CHEST PAIN Medications: Protocol: ADENOSINE Max HR: 115 BPM 72% of Pred: 159 BPM Max BP: 132/070 mmHG Max Work Load: 1.0 METS RESTING ECG: NORMAL SINUS RHYTHM AT 73 BPM SYMPTOMS: CHEST PAIN, HEADACHE APPROPRIATE BP RESPONSE FOR ADENOSINE ECTOPY: NONE ECG STRESS: NO SIGNIFICANT CHANGES INTERPRETATION: INDETERMINATE ECG/AWAIT NUCLEAR IMAGES FOR DEFINITIVE DIAGNOSIS Confirmed by MANISHA العلي ([id number]), acquisition editor AP TRONCOSO ([id number]) on 05/12/2019 12:07:58 PM Referred By: Confirmed By:MANISHA العلي
[2019-05-12 12:25] LABS: Primidone 12.4 ug/mL (5.0-12.0)
== END 2019-05-08 15:50 | disposition home or self-care (01) ==
LOC: ERS 18:32 → 2SW 22:42
PROVIDERS: ADMIT Family Medicine; ATTEND Family Medicine
DX: R07.82 Intercostal pain (principal); R42 Dizziness and giddiness; G40.909 Epilepsy, unspecified, not intractable, without status epilepticus; E78.5 Hyperlipidemia, unspecified; R74.8 Abnormal levels of other serum enzymes; E87.6 Hypokalemia; A41.9 Sepsis, unspecified organism; G11.9 Hereditary ataxia, unspecified; G31.9 Degenerative disease of nervous system, unspecified; Z86.73 Personal history of transient ischemic attack (TIA), and cerebral infarction without residual deficits; Z82.49 Family history of ischemic heart disease and other diseases of the circulatory system; Z87.891 Personal history of nicotine dependence; Z88.6 Allergy status to analgesic agent; Z79.899 Other long term (current) drug therapy
CPT/HCPCS: 36415; 70450; 71046; 78452; 80053; 80183; 80184; 80188; 80306; 80307; 82553; 84146; 84484; 85025; 93005; 93017; 94760; A9500; G0378; J0153

== ENCOUNTER 2019-05-17 13:55 | Outpatient (CLI) | payer OTHER ==
--- NOTE | 2019-05-17 14:35 | MMO ---
Bilateral MAMMO Bilat Screen DDI. CLINICAL HISTORY: Patient is 59 years old and is seen for screening. The patient has no family history of breast cancer. The patient has a history of right Excisional Biopsy in March, - benign, left Excisional Biopsy in Mar, 2002 - Invasive poorly differentiated ductal adenocarcino and left Mastectomy in 2001. VIEWS: The views performed were: bilateral craniocaudal and bilateral mediolateral oblique. FILMS COMPARED: The present examination has been compared to prior imaging studies performed at [facility] on 03/08/2014, 03/09/2015, 03/13/2016 and 04/29/2017. This study has been interpreted with the assistance of computer-aided detection. MAMMOGRAM FINDINGS: The breast is heterogeneously dense, which could obscure a lesion on mammography. There is an area of architectural distortion with associated post-surgical scar seen in the upper region of the right breast. There are no suspicious masses, suspicious calcifications, or new areas of architectural distortion. IMPRESSION: A ROUTINE FOLLOW-UP MAMMOGRAM IN 1 YEAR IS RECOMMENDED. ACR BI-RADS Category 2 - Benign finding MAMMOGRAPHY NOTE: 1. A negative mammogram report should not delay a biopsy if a dominant of clinically suspicious mass is present. 2. Approximately 10% to 15% of breast cancers are not detected by mammography. 3. Adenosis and dense breasts may obscure an underlying neoplasm.
== END 2019-05-17 13:56 | disposition home or self-care (01) ==
LOC: BICMAMMO 13:55
PROVIDERS: ATTEND Family Medicine
DX: Z12.31 Encounter for screening mammogram for malignant neoplasm of breast (principal); Z91.89 Other specified personal risk factors, not elsewhere classified; Z90.12 Acquired absence of left breast and nipple
CPT/HCPCS: 77067

== ENCOUNTER 2019-06-05 15:28 | Emergency (ER) | payer OTHER ==
[2019-06-05 17:06] LABS: #Eosinphils 0.2 thou/uL (0.0-0.7); #Lymphocytes 1.9 thou/uL (1.20-3.40); #Monocytes 0.5 thou/uL (0.11-0.59); #Neutrophils 3.1 thou/uL (1.40-6.50); %Basophils 0.7 % (0.0-1.0); %Eosinophils 2.9 % (0.0-10.0); %Lymphocytes 33.4 % (21.0-51.0); %Monocytes 8.3 % (0.0-10.0); %Neutrophils 54.6 % (42.0-75.0); Hemoglobin 12.7 g/dL (12.0-16.0); Mean Corpuscular HGB CONC 33.8 g/dL (32.0-36.0); Mean Corpuscular Hemoglobin 31.3 pg (27.0-31.0); Mean Corpuscular Volume 92.6 fL (78.0-98.0); Platelet Count 206 thou/uL (130-400); RBC Distribution Width 13.7 % (11.5-14.5); Red Blood Cell (RBC) Count 4.05 mill/uL (4.20-5.40); White Blood Cell (WBC) Count 5.7 thou/uL (4.8-10.8)
[2019-06-05 17:28] LABS: ALT (SGPT) 17 U/L (8-55); AST (SGOT) 21 U/L (5-34); Albumin 3.7 g/dL (3.4-4.8); Alkaline Phosphatase 150 U/L (40-150); Anion Gap 14 mmol/L (10-20); BUN (Urea Nitrogen) 12 mg/dL (9.8-20.1); Bilirubin, Total 0.3 mg/dL (0.2-1.2); Calc. Creatinine Clearance 0 mL/min (70-130); Calcium 8.8 mg/dL (7.8-10.44); Carbon Dioxide 21 mmol/L (23-31); Chloride 107 mmol/L (98-107); Estimated GFR-MDRD 90; Glucose 85 mg/dL (80-115); Lipase 44 U/L (8-78); Potassium 3.9 mmol/L (3.5-5.1); Protein, Total 8.7 g/dL (6.0-8.3); Sodium 138 mmol/L (136-145)
== END 2019-06-05 18:57 | disposition home or self-care (01) ==
LOC: ERS 15:28
DX: R10.9 Unspecified abdominal pain (principal); Z87.891 Personal history of nicotine dependence
CPT/HCPCS: 80053; 82274; 83690; 84484; 85025; 93005

== ENCOUNTER 2019-06-24 10:41 | Emergency (ER) | payer OTHER ==
[2019-06-24 11:27] LABS: #Basophils 0.1 thou/uL (0.0-0.2); #Eosinphils 0.1 thou/uL (0.0-0.7); #Lymphocytes 2.2 thou/uL (1.20-3.40); #Monocytes 0.4 thou/uL (0.11-0.59); %Eosinophils 2.5 % (0.0-10.0); %Lymphocytes 38.4 % (21.0-51.0); %Neutrophils 52.1 % (42.0-75.0); Hemoglobin 13.1 g/dL (12.0-16.0); Mean Corpuscular HGB CONC 33.2 g/dL (32.0-36.0); Mean Corpuscular Hemoglobin 30.4 pg (27.0-31.0); Mean Corpuscular Volume 91.6 fL (78.0-98.0); Mean Platelet Volume 9.4 fL (7.4-10.4); Platelet Count 196 thou/uL (130-400); RBC Distribution Width 13.6 % (11.5-14.5); Red Blood Cell (RBC) Count 4.31 mill/uL (4.20-5.40); White Blood Cell (WBC) Count 5.8 thou/uL (4.8-10.8)
[2019-06-24 11:52] LABS: ALT (SGPT) 23 U/L (8-55); AST (SGOT) 23 U/L (5-34); Albumin 3.6 g/dL (3.4-4.8); Alkaline Phosphatase 175 U/L (40-150); Anion Gap 13 mmol/L (10-20); BUN (Urea Nitrogen) 7 mg/dL (9.8-20.1); Bilirubin, Total 0.2 mg/dL (0.2-1.2); Calc. Creatinine Clearance 0 mL/min (70-130); Calcium 8.7 mg/dL (7.8-10.44); Carbon Dioxide 24 mmol/L (23-31); Chloride 106 mmol/L (98-107); Estimated GFR-MDRD Greater than 90; Globulin 4.8 g/dL (2.4-3.5); Glucose 85 mg/dL (80-115); Lipase 33 U/L (8-78); Potassium 3.8 mmol/L (3.5-5.1); Protein, Total 8.4 g/dL (6.0-8.3); Sodium 139 mmol/L (136-145)
[2019-06-24 13:01] LABS: Bacteria/HPF None Seen HPF (None Seen); Bilirubin Negative (Negative); Blood, Urine Negative (Negative); Clarity Clear (Clear); Glucose, Urine (Dipstick) Normal (Negative); Leukocyte 500 Leu/uL (Negative); Nitrite Negative (Negative); Protein, Urine (Dipstick) Negative (Neg-Trace); RBC/HPF 0-3 HPF (0-3); Urobilinogen Normal mg/dL (Less than 2)
== END 2019-06-24 13:10 | disposition left against medical advice (07) ==
LOC: ERS 10:41
DX: R19.7 Diarrhea, unspecified (principal); Z87.891 Personal history of nicotine dependence
CPT/HCPCS: 36415; 80053; 81003; 81015; 83690; 85025; 99284

== ENCOUNTER 2019-09-06 13:00 | Emergency (ER) | payer OTHER ==
--- NOTE | 2019-09-06 14:16 | RAD ---
XR Hand Lt 3 View STANDARD HISTORY: Left hand and wrist pain. COMPARISON: None. FINDINGS: The bones appear demineralized. There are osteoarthritic changes of the hand and wrist. The changes include the interphalangeal joints as well as metacarpophalangeal joints. Also the triscaphe the and first carpal metacarpal joint spaces. IMPRESSION: Mild osteoarthritic changes of the hand.
--- NOTE | 2019-09-06 14:17 | RAD ---
XR Wrist 3 Lt View STANDARD HISTORY: Left wrist pain thumb pain COMPARISON: None. FINDINGS: There are mild osteoarthritic changes of the triscaphe and first carpometacarpal joint spac e as well as first metacarpal phalangeal joint. The bones appear demineralized. IMPRESSION: Osteoarthritic changes as above.
== END 2019-09-06 14:40 | disposition home or self-care (01) ==
LOC: ERS 13:00
DX: M79.645 Pain in left finger(s) (principal); G89.29 Other chronic pain; Z87.891 Personal history of nicotine dependence

== ENCOUNTER 2019-10-20 20:10 | Observation (INO) | payer OTHER ==
[2019-10-20 22:10] LABS: Bacteria/HPF None Seen HPF (None Seen); Bilirubin Negative (Negative); Blood, Urine Negative (Negative); Clarity Clear (Clear); Glucose, Urine (Dipstick) Normal (Negative); Leukocyte 25 Leu/uL (Negative); Nitrite Negative (Negative); Protein, Urine (Dipstick) Negative (Neg-Trace); RBC/HPF 0-3 HPF (0-3); Urobilinogen Normal mg/dL (Less than 2); WBC/HPF 0-3 HPF (0-3)
[2019-10-20 22:22] LABS: #Basophils 0.1 thou/uL (0.0-0.2); #Eosinphils 0.2 thou/uL (0.0-0.7); #Lymphocytes 3.3 thou/uL (1.20-3.40); #Monocytes 0.7 thou/uL (0.11-0.59); #Neutrophils 3.6 thou/uL (1.40-6.50); %Basophils 1.3 % (0.0-1.0); %Eosinophils 2.5 % (0.0-10.0); %Lymphocytes 41.9 % (21.0-51.0); %Monocytes 8.5 % (0.0-10.0); %Neutrophils 45.8 % (42.0-75.0); Hemoglobin 12.5 g/dL (12.0-16.0); Mean Corpuscular HGB CONC 34.8 g/dL (32.0-36.0); Mean Corpuscular Hemoglobin 30.7 pg (27.0-31.0); Mean Corpuscular Volume 88.2 fL (78.0-98.0); Mean Platelet Volume 8.7 fL (7.4-10.4); Platelet Count 223 thou/uL (130-400); RBC Distribution Width 13.6 % (11.5-14.5); Red Blood Cell (RBC) Count 4.08 mill/uL (4.20-5.40); White Blood Cell (WBC) Count 7.8 thou/uL (4.8-10.8)
--- NOTE | 2019-10-20 22:41 | RAD ---
EXAM: Chest one view: HISTORY: Shortness of breath chest pain COMPARISON: 12/09/2017 FINDINGS: Stable increased markings bilaterally but no acute process. Heart size: Within normal limits. Lungs: Clear of acute process. No evidence for confluent pneumonia, pleural effusion, acute edema, or pneumothorax, or other signifi cant acute process. IMPRESSION: No significant acute intrathoracic disease. Stable exam.
[2019-10-20 22:42] LABS: ALT (SGPT) 34 U/L (8-55); AST (SGOT) 34 U/L (5-34); Albumin 3.8 g/dL (3.4-4.8); Alkaline Phosphatase 160 U/L (40-110); Anion Gap 13 mmol/L (10-20); BUN (Urea Nitrogen) 9 mg/dL (9.8-20.1); Bilirubin, Total 0.2 mg/dL (0.2-1.2); Calc. Creatinine Clearance 0 mL/min (70-130); Calcium 8.8 mg/dL (7.8-10.44); Carbon Dioxide 25 mmol/L (23-31); Chloride 106 mmol/L (98-107); Estimated GFR-MDRD Greater than 90; Globulin 4.7 g/dL (2.4-3.5); Glucose 91 mg/dL (80-115); Protein, Total 8.5 g/dL (6.0-8.3); Sodium 140 mmol/L (136-145)
--- NOTE | 2019-10-20 22:43 | RAD ---
Exam: Left knee 4 views: HISTORY: Pain FINDINGS: No acute fracture or dislocation. Heterogeneous density within the distal femoral metadiaphysis with little change from prior study, possibly related to bone infarcts. IMPRESSION: No acute process.
[2019-10-20 23:05] LABS: CKMB 0.6 ng/mL (0-6.6)
[2019-10-21] MEDS ORDERED: Acetaminophen 325 MG TAB PO PRN (00:26)
[2019-10-21] MEDS ORDERED: Ondansetron ODT 4 MG TAB PO PRN (00:26)
[2019-10-21 01:29] LABS: Amphetamine Not Detected (NotDetected); Barbiturates Screen Detected (NotDetected); Benzodiazepine Screen Not Detected (NotDetected); Cocaine Metabolite Screen Not Detected (NotDetected); Medtox Control Line Valid? VALID (VALID); Medtox Reader # READER 1; Methadone Not Detected (NotDetected); Methamphetamine Not Detected (NotDetected); Opiate Screen Not Detected (NotDetected); Oxycodone Screen Not Detected (NotDetected); Phencyclidine (PCP) Not Detected (NotDetected); THC/Cannabinoid Screen Not Detected (NotDetected); Tricyclic Screen Not Detected (NotDetected)
[2019-10-21 02:33] LABS: Troponin I 0.025 ng/mL (< 0.028)
--- NOTE | 2019-10-21 03:18 | PDOC.FPRHP ---
- Allergies/Adverse Reactions Allergies Allergy/AdvReac Type Severity Reaction Status Date / Time aspirin Allergy Unknown Verified 07/04/14 20:38 - Home Medications Medication Instructions Recorded Confirmed Type OXcarbazepine [Trileptal] 600 mg PO TID #0 tab 07/06/14 10/21/19 Rx Primidone [Mysoline] 250 mg PO BID 12/10/17 10/21/19 History Atorvastatin Calcium [Lipitor] 40 mg PO HS #30 tab 05/08/19 10/21/19 Rx Polyethylene Glycol 3350 [Miralax] 1 pk PO DAILY 10/21/19 10/21/19 History hydrOXYzine HCl [Hydroxyzine HCl] 50 mg PO HS 10/21/19 History - History PMHx: PSHx: FHx: Social: - Vital signs BP: [] HR: [] RR: [] Tmax: [] Pox: []% on [] Wt: [] FMR H&P: Results - Labs Result Diagrams: 10/20/19 22:12 10/20/19 22:12 Lab results: WBC 7.8 thou/uL (4.8-10.8) 10/20/19 22:12 Hgb 12.5 g/dL (12.0-16.0) 10/20/19 22:12 Hct 36.0 % (36.0-47.0) 10/20/19 22:12 MCV 88.2 fL (78.0-98.0) 10/20/19 22:12 Plt Count 223 thou/uL (130-400) 10/20/19 22:12 Neutrophils % 45.8 % (42.0-75.0) 10/20/19 22:12 Sodium 140 mmol/L (136-145) 10/20/19 22:12 Potassium 4.0 mmol/L (3.5-5.1) 10/20/19 22:12 Chloride 106 mmol/L (98-107) 10/20/19 22:12 Carbon Dioxide 25 mmol/L (23-31) 10/20/19 22:12 BUN 9 mg/dL (9.8-20.1) L 10/20/19 22:12 Creatinine 0.77 mg/dL (0.6-1.1) 10/20/19 22:12 Glucose 91 mg/dL (80-115) 10/20/19 22:12 Calcium 8.8 mg/dL (7.8-10.44) 10/20/19 22:12 Total Bilirubin 0.2 mg/dL (0.2-1.2) 10/20/19 22:12 AST 34 U/L (5-34) 10/20/19 22:12 ALT 34 U/L (8-55) 10/20/19 22:12 Alkaline Phosphatase 160 U/L (40-110) H 10/20/19 22:12 CK-MB (CK-2) 0.6 ng/mL (0-6.6) 10/20/19 22:12 Serum Total Protein 8.5 g/dL (6.0-8.3) H 10/20/19 22:12 Albumin 3.8 g/dL (3.4-4.8) 10/20/19 22:12 Urine Ketones Negative mg/dL (Negative) 10/20/19 21:52 Urine Blood Negative (Negative) 10/20/19 21:52 Urine Nitrite Negative (Negative) 10/20/19 21:52 Ur Leukocyte Esterase 25 Bora/uL (Negative) 10/20/19 21:52 Urine RBC 0-3 HPF (0-3) 10/20/19 21:52 Urine WBC 0-3 HPF (0-3) 10/20/19 21:52 Ur Squamous Epith Cells 4-6 HPF (0-3) A 10/20/19 21:52 Urine Bacteria None Seen HPF (None Seen) 10/20/19 21:52 FMR H&P: Upper Level - Plan Date/Time: 10/21/19311 PCP: Lindsay HPI: Patient comes in for syncope workup. Patient states she was walking to the car and all the sudden she started feeling dizzy, denies vertigo, felt like she was about to fall out. The symptoms lasted for about 30 minutes while she was riding in her daughters car and then resolved spontaneously. She denies falling or hitting her head. She was complaining of knee pain from a fall she had 1 month ago. She states she has not had a seizure in a few years and follows with Dr. Fierro for neurology. PMHx: seizure disorder, h/o CVA in 2012, h/o breast CA s/p chemoradiation & L lumpectomy, hep C, lymphedema left arm, PSHx: L lumpectomy, tali, BTL FHx: Father from a massive ND at unknown age. Social: Denies T/A/D use. Currently. Hx of cocaine, heroin, THC, alcoholism REVIEW OF SYSTEMS: Gen: no fever, chills, or sweats Neuro: denies headache Eyes: no visual changes ENT: no hearing changes, no sore throat, no congestion Resp: denies cough, SOB Card: denies murmurs, rubs, gallups GI: no N/V/D, no abdominal pain Heme: no easy bruising/bleeding, no blood thinners Skin: no rash, no erythema Vitals: BP: 159/78, Pulse: 74, Resp: 20, Temp: 97.7, O2 sat: 95 PHYSICAL EXAMINATION: General: NAD, alert and oriented x3 HEENT: PERRLA, EOMI, normal sclera, oropharynx without erythema or exudate Neck: Supple. Full ROM. Heart/Cardiovascular System: RRR, Cap refill < 3 seconds, no rub, no murmur Lungs/Respiratory System: CTA-B, no resp distress Abdomen/Gastro-Intestinal System: no abdominal tenderness, normal bowel sounds Extremities: Warm extremities. No cyanosis or edema Neuro: No gross deficits appreciated. CN 2-12 grossly intact Psychiatry: Awake, Alert and cooperative with exam Skin: No lesions, rashes, or ulcers, chronic lymphedema left arm Musculoskeletal: Full ROM A/P: # Near-Syncope - no persistent symptoms - will admit to tele obs for cardiac monitoring, EKG shows NSR - NIHSS: 0, consider TIA, HX of CVA o On statin, Allergy to ASA reported - Carotid US ordered, risk stratification labs ordered, orthostatic vitals ordered - Suspect vagal response, dehydration, vs deconditioning # Elevated Troponin - Trop 0.045, trend - No chest pain, normal EKG - Normal stress May 19 # HLD - home meds # Seizure disorder - home meds Fluids: TKO Code: full PPx: lovenox Dispo: anticipate d/c in AM
[2019-10-21 04:09] LABS: #Basophils 0.1 thou/uL (0.0-0.2); #Eosinphils 0.2 thou/uL (0.0-0.7); #Lymphocytes 2.9 thou/uL (1.20-3.40); #Monocytes 0.5 thou/uL (0.11-0.59); #Neutrophils 3.1 thou/uL (1.40-6.50); %Eosinophils 3.6 % (0.0-10.0); %Lymphocytes 42.9 % (21.0-51.0); %Monocytes 6.7 % (0.0-10.0); %Neutrophils 45.8 % (42.0-75.0); Hemoglobin 11.9 g/dL (12.0-16.0); Mean Corpuscular HGB CONC 33.8 g/dL (32.0-36.0); Mean Corpuscular Hemoglobin 29.9 pg (27.0-31.0); Mean Corpuscular Volume 88.3 fL (78.0-98.0); Mean Platelet Volume 8.4 fL (7.4-10.4); Platelet Count 215 thou/uL (130-400); RBC Distribution Width 13.6 % (11.5-14.5); Red Blood Cell (RBC) Count 3.97 mill/uL (4.20-5.40); White Blood Cell (WBC) Count 6.7 thou/uL (4.8-10.8)
[2019-10-21 04:26] LABS: Anion Gap 9 mmol/L (10-20); BUN (Urea Nitrogen) 9 mg/dL (9.8-20.1); Calc. Creatinine Clearance 0 mL/min (70-130); Calcium 8.8 mg/dL (7.8-10.44); Carbon Dioxide 28 mmol/L (23-31); Chloride 107 mmol/L (98-107); Cholesterol 175 mg/dl (< 200 Desired); Estimated GFR-MDRD Greater than 90; Glucose 89 mg/dL (80-115); HDL Cholesterol 58 mg/dL (>60 Neg Risk); LDL Cholesterol, Calculated 91 mg/dL; Potassium 3.9 mmol/L (3.5-5.1); Sodium 140 mmol/L (136-145); Triglycerides 130 mg/dL (Less than 150)
[2019-10-21 07:02] LABS: Troponin I 0.049 ng/mL (< 0.028)
[2019-10-21 08:02] VITALS: BMI 34.7
[2019-10-21 08:03] VITALS: TEMP 97.9
[2019-10-21] MEDS ORDERED: Enoxaparin Sodium 40 MG/0.4 ML SYRINGE SC SCH (09:00)
[2019-10-21] MEDS ORDERED: Polyethylene Glycol 3350 17 GM Packet PO SCH (09:00)
[2019-10-21] MEDS ORDERED: OXcarbazepine 300 MG TAB PO SCH (09:00)
[2019-10-21] MEDS ORDERED: Primidone 250 MG TAB PO SCH (09:00)
--- NOTE | 2019-10-21 10:38 | ULT ---
BILATERAL CAROTID DUPLEX ULTRASOUND: HISTORY: Syncope. TECHNIQUE: Schrader scale ultrasound with color flow and spectral Doppler imaging of the extracranial carotid artery systems is performed bilaterally. FINDINGS: No significant plaque formation or intimal wall thickening is seen on either side. The peak systolic velocity in the right ICA measures 50 cm/s with an end-diastolic velocity of 22 cm/ s and a systolic ratio of 0.78. The peak systolic velocity in the left ICA measures 61 cm/s with an end-diastolic velocity of 17 cm/s and a systolic ratio of 0.60. Flow in both vertebral arteries remains antegrade. IMPRESSION: No evidence of hemodynamically significant stenosis in either internal carotid artery. POS: [facility]
--- NOTE | 2019-10-21 12:21 | HP ---
I have discussed the case with Dr. Bean Villalba and agree with his assessment and plan. HISTORY OF PRESENT ILLNESS: Ms. Finch is a 59-year-old black female patient, who was admitted with a period of "profound dizziness." She felt that she was about to "fall out." There was no true loss of consciousness. She does have a history of seizure disorder, but states that she has not had a seizure in several years, and she did not feel like the symptoms she experienced were seizure. She was admitted for further evaluation and workup. PHYSICAL EXAMINATION: VITAL SIGNS: Stable. GENERAL: She is awake and alert, but slow speech. EAR, NOSE, AND THROAT: No erythema or exudate. NECK: Supple. CARDIAC: Heart rhythm regular. No gallop or murmur noted. LUNGS: Clear. ABDOMEN: Soft. NEUROLOGICAL: She has no focal deficits. LABORATORY DATA: CBC; white count 7800, hemoglobin 12.5, hematocrit 36 with an MCV of 88. Chemistries; sodium 140, potassium 4, chloride 106, bicarb 25, BUN 9, and creatinine 0.77. Her troponins are trending and plateauing at 0.045 to 0.025. ASSESSMENT: Near syncope, for which I doubt a serious disorder. Her EKG was normal. I do not feel at this point that she is a candidate for a Holter monitor as she had absolutely no symptoms prior to this episode of palpitations or chest pain. We will also await the results of carotid Doppler. Job ID: [id number]
[2019-10-21 13:22] VITALS: BP 140/78
[2019-10-21] MEDS ORDERED: Atorvastatin Calcium 40 MG TAB PO SCH (21:00)
[2019-10-21] MEDS ORDERED: hydrOXYzine 25 MG TAB PO SCH (21:00)
--- NOTE | 2019-10-26 01:47 | DIS ---
DATE OF ADMISSION: 10/21/2019 DATE OF DISCHARGE: 10/21/2019 ADMITTING ATTENDING: Ulices Neil MD DISCHARGE ATTENDING: Ulices Neil MD CONSULTS: None. PROCEDURES PERFORMED: 1. Chest x-ray. 2. Knee x-ray. 3. Carotid Doppler study. PRIMARY DIAGNOSIS: Near syncope. SECONDARY DIAGNOSES: 1. Elevated troponin. 2. Hyperlipidemia. 3. Seizure disorder. DISCHARGE MEDICATIONS: These include: 1. Atorvastatin 40 mg p.o. nightly. 2. Hydroxyzine 50 mg p.o. nightly. 3. Oxcarbazepine 600 mg p.o. t.i.d. 4. MiraLAX 1 packet p.o. daily. 5. Primidone 250 mg p.o. b.i.d. DISCONTINUED MEDICATIONS: None. HOSPITAL COURSE: This is a 59-year-old female with history of seizure disorder , who was noted to be severely dizzy. In the ER, she was found to be hypotensive. She was brought into the hospital for optimization of her medical management as well as evaluation of her elevated troponin value which was 0.045 and trended to 0.025-0.049. She had been recently placed on hydralazine and this was discontinued. Instead, she was given Bumex and carvedilol 12.5 mg twice daily. The patient tolerated these medication changes well. She also did have acute kidney injury, which improved after her medications were adjusted. On admission, her creatinine was 3 and came back to her baseline of 1.23 at the time of discharge. The results of her chest x-ray showed no acute intrathoracic disease. She had a knee x-ray as she fell upon her knee and showed no acute fracture or process. Carotid Doppler study also was negative for any significant stenosis in the internal carotid arteries. Her EKG here was normal and she had a normal stress test in May of 2019, per record review. PHYSICAL EXAMINATION: GENERAL: In no acute distress. RESPIRATORY: No respiratory distress. Clear to auscultation bilaterally. CARDIOVASCULAR: Regular rate and rhythm. No murmur. ABDOMEN: Soft, nondistended, and nontender to palpation. HEENT: Normocephalic, atraumatic. EXTREMITIES: Lower extremities, no edema. Well perfused with pulses. NEURO: No focal deficit. Cranial nerves 2 through 12 intact. LABORATORY DATA: CBC, notable values from normal include hemoglobin of 11.9. CMP values that were abnormal included creatinine as aforementioned and alkaline phosphatase of 160. DISPOSITION: Stable. DISCHARGE INSTRUCTIONS: 1. Location: Home. 2. Diet: Heart healthy. 3. Activity: As tolerated. 4. Followup: Follow up with PCP in 1 week. Job ID: [id number] MTDD
== END 2019-10-21 15:17 | disposition home or self-care (01) ==
LOC: ERS 20:10 → ERHOLD 10-21 01:13 → 2SW 10-21 07:45
PROVIDERS: ADMIT Family Medicine; ATTEND Family Medicine
DX: R55 Syncope and collapse (principal); R79.89 Other specified abnormal findings of blood chemistry; G40.909 Epilepsy, unspecified, not intractable, without status epilepticus; I95.9 Hypotension, unspecified; N17.9 Acute kidney failure, unspecified; I89.0 Lymphedema, not elsewhere classified; F10.21 Alcohol dependence, in remission; F12.11 Cannabis abuse, in remission; F14.11 Cocaine abuse, in remission; F11.11 Opioid abuse, in remission; Z85.3 Personal history of malignant neoplasm of breast; Z86.73 Personal history of transient ischemic attack (TIA), and cerebral infarction without residual deficits; Z87.891 Personal history of nicotine dependence; Z79.899 Other long term (current) drug therapy; Z88.8 Allergy status to other drugs, medicaments and biological substances
CPT/HCPCS: 36415; 71045; 80048; 80053; 80061; 80306; 81003; 81015; 82553; 84443; 84484; 85025; 93005; 93880; 94760; 96372; G0378; J1650

== ENCOUNTER 2019-10-30 18:40 | Emergency (ER) | payer OTHER | END 2019-10-30 20:30 | disposition left against medical advice (07) | LOC: ERS 18:40 | DX: Z53.21 Procedure and treatment not carried out due to patient leaving prior to being seen by health care provider (principal) ==

== ENCOUNTER 2019-11-02 17:16 | Emergency (ER) | payer OTHER | END 2019-11-02 18:59 | disposition home or self-care (01) | LOC: ERS 17:16 | DX: M25.562 Pain in left knee (principal); Z87.891 Personal history of nicotine dependence; Z86.73 Personal history of transient ischemic attack (TIA), and cerebral infarction without residual deficits | CPT/HCPCS: 99281 ==

== ENCOUNTER 2020-06-11 14:53 | Emergency (ER) | payer OTHER ==
[2020-06-11 15:39] LABS: #Basophils 0.1 thou/uL (0.0-0.2); #Eosinphils 0.1 thou/uL (0.0-0.7); #Lymphocytes 2.3 thou/uL (1.20-3.40); #Monocytes 0.4 thou/uL (0.11-0.59); #Neutrophils 2.7 thou/uL (1.40-6.50); %Basophils 1.1 % (0.0-1.0); %Eosinophils 1.3 % (0.0-10.0); %Lymphocytes 42.2 % (21.0-51.0); %Monocytes 6.8 % (0.0-10.0); %Neutrophils 48.6 % (42.0-75.0); Hemoglobin 12.7 g/dL (12.0-16.0); Mean Corpuscular HGB CONC 33.3 g/dL (32.0-36.0); Mean Corpuscular Volume 90.1 fL (78.0-98.0); Mean Platelet Volume 9.4 fL (7.4-10.4); Platelet Count 207 thou/uL (130-400); RBC Distribution Width 13.5 % (11.5-14.5); Red Blood Cell (RBC) Count 4.22 mill/uL (4.20-5.40); White Blood Cell (WBC) Count 5.5 thou/uL (4.8-10.8)
[2020-06-11 16:00] LABS: ALT (SGPT) 26 U/L (8-55); AST (SGOT) 25 U/L (5-34); Albumin 3.7 g/dL (3.4-4.8); Alkaline Phosphatase 159 U/L (40-110); Anion Gap 12 mmol/L (10-20); BUN (Urea Nitrogen) 7 mg/dL (9.8-20.1); Bilirubin, Total 0.2 mg/dL (0.2-1.2); Calc. Creatinine Clearance 0 mL/min (70-130); Calcium 8.8 mg/dL (7.8-10.44); Carbon Dioxide 27 mmol/L (23-31); Chloride 107 mmol/L (98-107); Estimated GFR-MDRD 85; Globulin 4.7 g/dL (2.4-3.5); Glucose 90 mg/dL (80-115); Potassium 3.7 mmol/L (3.5-5.1); Protein, Total 8.4 g/dL (6.0-8.3); Sodium 142 mmol/L (136-145)
--- NOTE | 2020-06-11 16:47 | RAD ---
CHEST ONE VIEW PORTABLE: History: Right sided arm pain radiating to right ribs. FINDINGS: Monitor leads overlie the chest. Heart size within normal limits. The lungs are clear of acute proces s. IMPRESSION: No acute intrathoracic disease. Stable from prior study. POS: [facility]
[2020-06-11] MEDS ORDERED: Ketorolac Tromethamine 30 MG/ML VIAL ONE (17:04)
[2020-06-11] MEDS ORDERED: Ondansetron PF 4 MG/2 ML Vial ONE (17:26)
[2020-06-11] MEDS ORDERED: Acetaminophen 500 MG TAB ONE (17:26)
[2020-06-11 18:22] LABS: Troponin I 0.092 ng/mL (< 0.028)
== END 2020-06-11 19:57 | disposition home or self-care (01) ==
LOC: ERS 14:53
DX: R07.89 Other chest pain (principal); R10.9 Unspecified abdominal pain; Z85.3 Personal history of malignant neoplasm of breast; Z86.73 Personal history of transient ischemic attack (TIA), and cerebral infarction without residual deficits; Z87.891 Personal history of nicotine dependence; Z79.899 Other long term (current) drug therapy
CPT/HCPCS: 36415; 71045; 80053; 82553; 84484; 85025; 85379; 93005; 94760; 96374; 96375; J1885; J2405

== ENCOUNTER 2020-08-23 14:34 | Outpatient (CLI) | payer OTHER ==
--- NOTE | 2020-08-23 15:24 | RAD ---
EXAM: XR Abdomen 2 View PROVIDED CLINICAL HISTORY: Altered bowel function. COMPARISON: None FINDINGS: Visualized lung bases are clear. Surgical clips overlie the right upper quadrant. Surgical clips also seen overlying the pelvis. Bowel gas pattern is nonspecific. There is a nonspecific cluster of irregular calcifications seen overlying the medial aspect right upp er quadrant. These calcifications are unchanged when compared to study on 08/19/2015. IMPRESSION: Stable irregular calcifications medial right upper quadrant which are nonspecific but may be related to vascular calcifications. No new suspicious calcifications are seen overlying the expected location of either renal collecting system or along the course of either ureter. Nonspecific bowel gas pattern.
== END 2020-08-23 14:35 | disposition home or self-care (01) ==
LOC: BICRAD 14:34
PROVIDERS: ATTEND Physician Assistant Medical
DX: R19.4 Change in bowel habit (principal); R93.5 Abnormal findings on diagnostic imaging of other abdominal regions, including retroperitoneum
CPT/HCPCS: 74019

== ENCOUNTER 2020-09-19 15:15 | Outpatient (CLI) | payer OTHER ==
--- NOTE | 2020-09-19 16:27 | MMO ---
Bilateral MAMMO Bilat Screen [facility]. CLINICAL HISTORY: Patient is 60 years old and is seen for screening. The patient has no family history of breast cancer. The patient has a history of right Excisional Biopsy in March, - benign, left Excisional Biopsy in Mar, 2002 - Invasive poorly differentiated ductal adenocarcino and left Mastectomy in 2001. VIEWS: The views performed were: right craniocaudal and right mediolateral oblique. FILMS COMPARED: The present examination has been compared to prior imaging studies performed at [facility] on 03/09/2015, 03/13/2016, 04/29/2017 and 05/17/2019. This study has been interpreted with the assistance of computer-aided detection. MAMMOGRAM FINDINGS: The breast is heterogeneously dense, which could obscure a lesion on mammography. There are benign appearing calcifications seen in the right breast. There are stable post-operative changes. There are no suspicious masses, suspicious calcifications, or new areas of architectural distortion. IMPRESSION: THERE IS NO MAMMOGRAPHIC EVIDENCE OF MALIGNANCY. A ROUTINE FOLLOW-UP MAMMOGRAM IN 1 YEAR IS RECOMMENDED. ACR BI-RADS Category 2 - Benign finding MAMMOGRAPHY NOTE: 1. A negative mammogram report should not delay a biopsy if a dominant of clinically suspicious mass is present. 2. Approximately 10% to 15% of breast cancers are not detected by mammography. 3. Adenosis and dense breasts may obscure an underlying neoplasm. Reported by: LINDSEY STEEN MD Electonically Signed: [id number]
== END 2020-09-19 15:16 | disposition home or self-care (01) ==
LOC: BICMAMMO 15:15
PROVIDERS: ATTEND Family Medicine
DX: Z12.31 Encounter for screening mammogram for malignant neoplasm of breast (principal); Z85.3 Personal history of malignant neoplasm of breast; Z91.89 Other specified personal risk factors, not elsewhere classified; Z90.12 Acquired absence of left breast and nipple
CPT/HCPCS: 77067

== ENCOUNTER 2020-11-12 02:09 | Emergency (ER) | payer OTHER | END 2020-11-12 02:58 | disposition home or self-care (01) | LOC: ERS 02:09 | DX: L29.9 Pruritus, unspecified (principal); L81.9 Disorder of pigmentation, unspecified; Z87.891 Personal history of nicotine dependence; Z79.899 Other long term (current) drug therapy | CPT/HCPCS: 99281 ==

== ENCOUNTER 2021-04-21 18:46 | Emergency (ER) | payer OTHER | END 2021-04-21 19:29 | disposition home or self-care (01) | LOC: ERS 18:46 | DX: M79.621 Pain in right upper arm (principal); T50.B95A Adverse effect of other viral vaccines, initial encounter; Z87.891 Personal history of nicotine dependence | CPT/HCPCS: 99281 ==

== ENCOUNTER 2021-09-21 13:58 | Outpatient (CLI) | payer MEDICAID, OTHER | END 2021-09-21 13:59 | disposition home or self-care (01) | LOC: BICMAMMO 13:58 | PROVIDERS: ATTEND Family Medicine | DX: Z12.31 Encounter for screening mammogram for malignant neoplasm of breast (principal); Z85.3 Personal history of malignant neoplasm of breast; Z90.12 Acquired absence of left breast and nipple; Z91.89 Other specified personal risk factors, not elsewhere classified | CPT/HCPCS: 77067 ==

== ENCOUNTER 2022-03-28 12:44 | Outpatient (CLI) | payer OTHER ==
[2022-03-28 13:28] LABS: Estimated GFR-MDRD - POC Greater than 90
== END 2022-03-28 12:45 | disposition home or self-care (01) ==
LOC: CT 12:44
PROVIDERS: ATTEND Physician Assistant Medical
DX: R14.0 Abdominal distension (gaseous) (principal); R19.4 Change in bowel habit
CPT/HCPCS: 74177; 82565

== ENCOUNTER 2022-09-23 13:02 | Outpatient (CLI) | payer OTHER | END 2022-09-23 13:03 | disposition home or self-care (01) | LOC: BICMAMMO 13:02 | PROVIDERS: ATTEND Nurse Practitioner Family | DX: Z12.31 Encounter for screening mammogram for malignant neoplasm of breast (principal); Z85.3 Personal history of malignant neoplasm of breast; Z91.89 Other specified personal risk factors, not elsewhere classified; Z90.12 Acquired absence of left breast and nipple | CPT/HCPCS: 77067 ==

== ENCOUNTER 2023-07-20 16:13 | Emergency (ER) | payer OTHER ==
[2023-07-20 16:58] LABS: #Eosinphils 0.2 thou/uL (0.0-0.7); #Monocytes 0.5 thou/uL (0.11-0.59); %Basophils 0.4 % (0.0-1.0); %Eosinophils 4.4 % (0.0-10.0); %Lymphocytes 45.9 % (21.0-51.0); %Neutrophils 39.1 % (42.0-75.0); Hematocrit 35.2 % (36.0-47.0); Hemoglobin 12.1 g/dL (12.0-16.0); Mean Corpuscular HGB CONC 34.4 g/dL (32.0-36.0); Mean Corpuscular Hemoglobin 30.9 pg (27.0-31.0); Mean Corpuscular Volume 89.8 fl (78.0-98.0); Mean Platelet Volume 10.9 fL (7.4-10.4); Platelet Count 256 10x3/uL (130-400); Red Blood Cell (RBC) Count 3.92 mill/uL (4.20-5.40); White Blood Cell (WBC) Count 5.2 10x3/uL (4.8-10.8)
[2023-07-20 17:30] LABS: ALT (SGPT) 27 U/L (8-55); AST (SGOT) 28 U/L (5-34); Albumin 3.7 g/dL (3.4-4.8); Alkaline Phosphatase 118 U/L (40-110); BUN (Urea Nitrogen) 7 mg/dL (9.8-20.1); Bilirubin, Total 0.2 mg/dL (0.2-1.2); Calc. Creatinine Clearance 0 mL/min (70-130); Calcium 8.7 mg/dL (7.8-10.44); Chloride 107 mmol/L (98-107); Estimated GFR 75; Globulin 4.5 g/dL (2.4-3.5); Glucose 92 mg/dL (80-115); Potassium 3.7 mmol/L (3.5-5.1); Protein, Total 8.2 g/dL (5.8-8.1); Sodium 136 mmol/L (136-145)
[2023-07-20 17:36] LABS: Carbon Dioxide 22 mmol/L (23-31)
[2023-07-20 17:46] LABS: Anion Gap 16 mmol/L (10-20)
== END 2023-07-20 19:00 | disposition home or self-care (01) ==
LOC: ERS 16:13
DX: I89.0 Lymphedema, not elsewhere classified (principal)
CPT/HCPCS: 36415; 80053; 85025; 85379

== ENCOUNTER 2023-09-15 23:25 | Emergency (ER) | payer MEDICARE, OTHER | END 2023-09-16 02:00 | disposition home or self-care (01) | LOC: ERS 23:25 | DX: I10 Essential (primary) hypertension (principal); Z87.891 Personal history of nicotine dependence | CPT/HCPCS: 99283 ==

== ENCOUNTER 2023-10-06 12:47 | Outpatient (CLI) | payer OTHER | END 2023-10-06 12:48 | disposition home or self-care (01) | LOC: BICMAMMO 12:47 | PROVIDERS: ATTEND Nurse Practitioner Family | DX: Z12.31 Encounter for screening mammogram for malignant neoplasm of breast (principal); Z85.3 Personal history of malignant neoplasm of breast; Z91.89 Other specified personal risk factors, not elsewhere classified; Z90.12 Acquired absence of left breast and nipple | CPT/HCPCS: 77067 ==

== ENCOUNTER 2023-11-01 22:17 | Emergency (ER) | payer MEDICAID, OTHER ==
[2023-11-01] MEDS ORDERED: HYDROcodone/Acetaminophen 5/325 mg Tablet ONE (23:12)
== END 2023-11-01 23:28 | disposition home or self-care (01) ==
LOC: ERS 22:17
DX: S52.502A Unspecified fracture of the lower end of left radius, initial encounter for closed fracture (principal); Z87.891 Personal history of nicotine dependence; W20.8XXA Other cause of strike by thrown, projected or falling object, initial encounter
CPT/HCPCS: 29125

== ENCOUNTER 2024-01-08 17:25 | Emergency (ER) | payer OTHER | END 2024-01-08 18:28 | disposition home or self-care (01) | LOC: ERS 17:25 | DX: M79.601 Pain in right arm (principal); Z55.6 Problems related to health literacy; Z87.891 Personal history of nicotine dependence ==

== ENCOUNTER 2024-06-05 14:59 | Inpatient (IN) | payer MEDICARE, MEDICAID ==
[2024-06-05 16:09] LABS: #Basophils Less than 0.03 10x3/uL (0.0-0.2); %Basophils 0.3 % (0.0-1.0); %Eosinophils 2.2 % (0.0-10.0); %Lymphocytes 16.5 % (21.0-51.0); %Monocytes 8.8 % (0.0-10.0); Hematocrit 38.6 % (36.0-47.0); Hemoglobin 13.2 g/dL (12.0-16.0); Mean Corpuscular HGB CONC 34.2 g/dL (32.0-36.0); Mean Corpuscular Hemoglobin 30.7 pg (27.0-31.0); Mean Corpuscular Volume 89.8 fL (78.0-98.0); Mean Platelet Volume 11.4 fL (7.4-10.4); Platelet Count 210 10x3/uL (130-400); RBC Distribution Width 14.2 % (11.5-14.5)
[2024-06-05 16:41] LABS: ALT (SGPT) 23 U/L (8-55); AST (SGOT) 24 U/L (5-34); Albumin 3.8 g/dL (3.4-4.8); Alkaline Phosphatase 159 U/L (40-110); Anion Gap 15 mmol/L (10-20); BUN (Urea Nitrogen) 4 mg/dL (9.8-20.1); Bilirubin, Total 0.4 mg/dL (0.2-1.2); Calc. Creatinine Clearance 0 mL/min (70-130); Calcium 9.5 mg/dL (7.8-10.44); Carbon Dioxide 23 mmol/L (23-31); Chloride 105 mmol/L (98-107); Estimated GFR 86; Globulin 4.5 g/dL (2.4-3.5); Glucose 90 mg/dL (80-115); Magnesium 1.7 mg/dL (1.6-2.6); Protein, Total 8.3 g/dL (5.8-8.1); Sodium 139 mmol/L (136-145); Troponin I 0.175 ng/mL (< 0.028)
[2024-06-05] MEDS ORDERED: Acetaminophen 650 MG Suppository PR PRN (17:40)
[2024-06-05 19:17] LABS: Acetaminophen Less than 10 mcg/mL (10.0-30.0); Alcohol Less than 10.0 mg/dL (Less than 10); Salicylate Less than 8.0 mg/dL (15.0-30.0)
[2024-06-05 19:22] LABS: Troponin I 0.184 ng/mL (< 0.028)
[2024-06-05 20:49] VITALS: BMI 35.4
[2024-06-05] MEDS: Guaifenesin DM 100-10/5 ML UDCUP PO PRN (21:37)
[2024-06-05] MEDS: Acetaminophen 325 MG TAB PO PRN (21:38)
[2024-06-05] MEDS: Magnesium 2 GM/50 ML(in water) 2 GM in Premix 1 BAG IVPB SCH (21:40)
[2024-06-05 22:03] LABS: Amphetamine Not Detected (NotDetected); Barbiturates Screen Detected (NotDetected); Benzodiazepine Screen Not Detected (NotDetected); Cocaine Metabolite Screen Not Detected (NotDetected); Methadone Not Detected (NotDetected); Methamphetamine Not Detected (NotDetected); Opiate Screen Not Detected (NotDetected); Oxycodone Screen Not Detected (NotDetected); Phencyclidine (PCP) Not Detected (NotDetected); THC/Cannabinoid Screen Not Detected (NotDetected); Tricyclic Screen Not Detected (NotDetected)
[2024-06-05 22:29] LABS: Influenza A by NAA Not Detected (NotDetected); Influenza B by NAA Not Detected (NotDetected); SARS-CoV-2 NAA Rapid Test DETECTED (NotDetected)
[2024-06-05] MEDS ORDERED: Albuterol 200 PUFF INH INH PRN (22:36)
[2024-06-05 22:48] LABS: Troponin I 0.197 ng/mL (< 0.028)
[2024-06-06] MEDS: Nitroglycerin 2% Ointment 1 INCH/1 GM Packet TOP SCH (01:47)
[2024-06-06 04:34] LABS: #Basophils Less than 0.03 10x3/uL (0.0-0.2); %Basophils 0.2 % (0.0-1.0); %Eosinophils 0.5 % (0.0-10.0); %Lymphocytes 12.9 % (21.0-51.0); %Monocytes 12.9 % (0.0-10.0); %Neutrophils 73.3 % (42.0-75.0); Hematocrit 37.6 % (36.0-47.0); Hemoglobin 13.1 g/dL (12.0-16.0); Mean Corpuscular HGB CONC 34.8 g/dL (32.0-36.0); Mean Corpuscular Hemoglobin 31.2 pg (27.0-31.0); Mean Corpuscular Volume 89.5 fL (78.0-98.0); Mean Platelet Volume 12.4 fL (7.4-10.4); Platelet Count 162 10x3/uL (130-400); RBC Distribution Width 14.1 % (11.5-14.5)
[2024-06-06 04:55] LABS: Anion Gap 16 mmol/L (10-20); BUN (Urea Nitrogen) 8 mg/dL (9.8-20.1); Calc. Creatinine Clearance 82 mL/min (70-130); Calcium 9.1 mg/dL (7.8-10.44); Carbon Dioxide 23 mmol/L (23-31); Cardiac Risk 3.1 (Less than 4.5); Chloride 102 mmol/L (98-107); Cholesterol 180 mg/dl (< 200 Desired); Estimated GFR 79; Glucose 89 mg/dL (80-115); HDL Cholesterol 58 mg/dL (>60 Neg Risk); LDL Cholesterol, Calculated 97 mg/dL; Magnesium 2.2 mg/dL (1.6-2.6); Potassium 3.3 mmol/L (3.5-5.1); Sodium 138 mmol/L (136-145); Triglycerides 125 mg/dL (Less than 150)
[2024-06-06 04:58] LABS: Hemoglobin A1c 5.4 % (4.0-6.0)
[2024-06-06] MEDS: Polyethylene Glycol 3350 17 GM Packet PO SCH (08:19)
[2024-06-06] MEDS: Potassium Chloride 20 MEQ in Premix 1 BAG IVPB SCH (08:19)
[2024-06-06] MEDS: Enoxaparin 40 MG (0.4 mL) SYRINGE SC SCH (08:19)
[2024-06-06] MEDS ORDERED: PAXLOVID PO PRN (09:45)
[2024-06-06] MEDS: Amlodipine 5 MG TAB PO SCH ×2 (10:33→20:36)
[2024-06-06] MEDS: NIRMATRELVIR 150 MG (X 2)/RITONAVIR 100 MG DOSE PACK PO SCH ×2 (10:36→20:37)
[2024-06-06] MEDS ORDERED: Electrolyte Replacement Protocol 1 EACH FS SCH (17:30)
[2024-06-06] MEDS: OXcarbazepine 300 MG TAB PO SCH (20:36)
[2024-06-06] MEDS: Primidone 250 MG TAB PO SCH (20:36)
[2024-06-06] MEDS ORDERED: NIRMATRELVIR 150 MG (X 2)/RITONAVIR 100 MG DOSE PACK PO SCH (21:00)
[2024-06-06] MEDS ORDERED: Atorvastatin Calcium 40 MG TAB PO SCH (21:00)
[2024-06-06] MEDS: Benzonatate 100 MG CAP PO PRN (23:09)
[2024-06-07 05:16] LABS: #Basophils Less than 0.03 10x3/uL (0.0-0.2); #Eosinphils Less than 0.03 10x3/uL (0.0-0.7); %Basophils 0.1 % (0.0-1.0); %Eosinophils 0.1 % (0.0-10.0); %Lymphocytes 17.4 % (21.0-51.0); %Monocytes 5.3 % (0.0-10.0); %Neutrophils 76.8 % (42.0-75.0); Hematocrit 38.7 % (36.0-47.0); Hemoglobin 13.5 g/dL (12.0-16.0); Mean Corpuscular HGB CONC 34.9 g/dL (32.0-36.0); Mean Corpuscular Hemoglobin 31.1 pg (27.0-31.0); Mean Corpuscular Volume 89.2 fL (78.0-98.0); Mean Platelet Volume 11.2 fL (7.4-10.4); Platelet Count 169 10x3/uL (130-400); RBC Distribution Width 14.2 % (11.5-14.5); Red Blood Cell (RBC) Count 4.34 mill/uL (4.20-5.40)
[2024-06-07 05:50] LABS: Anion Gap 14 mmol/L (10-20); BUN (Urea Nitrogen) 9 mg/dL (9.8-20.1); Calc. Creatinine Clearance 86 mL/min (70-130); Calcium 8.9 mg/dL (7.8-10.44); Carbon Dioxide 21 mmol/L (23-31); Chloride 104 mmol/L (98-107); Estimated GFR 84; Glucose 73 mg/dL (80-115); Magnesium 1.9 mg/dL (1.6-2.6); Potassium 3.9 mmol/L (3.5-5.1); Sodium 135 mmol/L (136-145)
[2024-06-07] MEDS: Magnesium 2 GM/50 ML(in water) 2 GM in Premix 1 BAG IVPB SCH (10:14)
[2024-06-07 16:39] VITALS: BP 129/73; TEMP 99.4
[2024-06-11] MEDS ORDERED: Atorvastatin Calcium 40 MG TAB PO SCH (21:00)
== END 2024-06-07 17:48 | disposition home or self-care (01) | DRG 178 ==
LOC: ERS 14:59 → 2SW 17:50 → OBSVTOIN 06-07 10:49
PROVIDERS: ADMIT Hospitalist; ATTEND Family Medicine
PROC: 8E0ZXY6 Isolation (ICD-10-PCS; principal; 2024-06-07)
DX: U07.1 COVID-19 (principal); E87.1 Hypo-osmolality and hyponatremia; I10 Essential (primary) hypertension; G40.909 Epilepsy, unspecified, not intractable, without status epilepticus; I08.1 Rheumatic disorders of both mitral and tricuspid valves; E78.5 Hyperlipidemia, unspecified; Z79.82 Long term (current) use of aspirin; Z79.899 Other long term (current) drug therapy; Z90.49 Acquired absence of other specified parts of digestive tract; Z86.73 Personal history of transient ischemic attack (TIA), and cerebral infarction without residual deficits
CPT/HCPCS: 36415; 71046; 80048; 80053; 80061; 80306; 80307; 83036; 83690; 83735; 83880; 84443; 84484; 85025; 85379; 93005; 93306; 94760; 96372; 96374; 96375; 96376; G0378; J1650; J3475; J3480; J8499

== ENCOUNTER 2024-06-15 14:39 | Emergency (ER) | payer MEDICARE, MEDICAID ==
[2024-06-15 17:07] LABS: SARS-CoV-2 E Target Positive; SARS-CoV-2 N2 Target Positive; SARS-CoV-2 NAA Rapid Test DETECTED (NotDetected); SARS-CoV-2 RdRP gene Negative
== END 2024-06-15 17:24 | disposition home or self-care (01) ==
LOC: ERS 14:39
DX: Z76.0 Encounter for issue of repeat prescription (principal); G40.909 Epilepsy, unspecified, not intractable, without status epilepticus; I10 Essential (primary) hypertension; Z87.891 Personal history of nicotine dependence
CPT/HCPCS: 99281; U0002

== ENCOUNTER 2024-09-07 13:06 | Emergency (ER) | payer MEDICARE, OTHER ==
[2024-09-07 14:46] LABS: #Basophils Less than 0.03 10x3/uL (0.0-0.2); %Basophils 0.4 % (0.0-1.0); %Eosinophils 1.5 % (0.0-10.0); %Lymphocytes 38.8 % (21.0-51.0); %Monocytes 7.7 % (0.0-10.0); %Neutrophils 51.4 % (42.0-75.0); Hematocrit 36.2 % (36.0-47.0); Hemoglobin 12.4 g/dL (12.0-16.0); Mean Corpuscular HGB CONC 34.3 g/dL (32.0-36.0); Mean Corpuscular Hemoglobin 30.7 pg (27.0-31.0); Mean Corpuscular Volume 89.6 fL (78.0-98.0); Platelet Count 241 10x3/uL (130-400); Red Blood Cell (RBC) Count 4.04 mill/uL (4.20-5.40)
[2024-09-07 14:47] LABS: Bacteria/HPF None Seen HPF (None Seen); Bilirubin Negative (Negative); Blood, Urine Negative (Negative); CAUTI Indications for Culture Alt mental st,lethar; Clarity Clear (Clear); Glucose, Urine (Dipstick) Normal (Negative); Ketone, Urine Negative (Negative); Leukocyte Negative Leu/uL (Negative); Nitrite Negative (Negative); Protein, Urine (Dipstick) Negative (Neg-Trace); RBC/HPF 0-3 HPF (0-3); Specific Gravity, Urine 1.005 (1.002-1.036); Squamous Epithelial 0-3 HPF (0-3); Urobilinogen Normal mg/dL (Less than 2); WBC/HPF 0-3 HPF (0-3)
[2024-09-07 14:50] LABS: Urine Culture Reflex No No
[2024-09-07 15:03] LABS: ALT (SGPT) 20 U/L (8-55); AST (SGOT) 22 U/L (5-34); Albumin 3.5 g/dL (3.4-4.8); Alkaline Phosphatase 134 U/L (40-110); Anion Gap 12 mmol/L (10-20); BUN (Urea Nitrogen) 5 mg/dL (9.8-20.1); Bilirubin, Total 0.3 mg/dL (0.2-1.2); Calc. Creatinine Clearance 0 mL/min (70-130); Carbon Dioxide 26 mmol/L (23-31); Chloride 109 mmol/L (98-107); Estimated GFR 81; Globulin 4.5 g/dL (2.4-3.5); Glucose 90 mg/dL (80-115); Potassium 3.4 mmol/L (3.5-5.1); Sodium 144 mmol/L (136-145)
== END 2024-09-07 17:15 | disposition home or self-care (01) ==
LOC: ERS 13:06
DX: R56.9 Unspecified convulsions (principal); R42 Dizziness and giddiness; I10 Essential (primary) hypertension; Z55.6 Problems related to health literacy; Z87.891 Personal history of nicotine dependence
CPT/HCPCS: 36415; 51701; 70450; 71045; 72125; 80053; 81001; 84484; 85025; 93005

== ENCOUNTER 2024-10-24 16:44 | Inpatient (IN) | payer MEDICARE, MEDICAID ==
[~2024-10-24 16:44] MED LIST: Iopamidol-370 76% 500 ML MDV (1 ML CHARGE) ONE
[2024-10-24 17:28] LABS: Hematocrit 40.6 % (36.0-47.0); Hemoglobin 14.2 g/dL (12.0-16.0); Mean Corpuscular Volume 85.7 fL (78.0-98.0); Platelet Count 182 10x3/uL (130-400); RBC Distribution Width 13.8 % (11.5-14.5); Red Blood Cell (RBC) Count 4.74 mill/uL (4.20-5.40)
[2024-10-24 17:38] LABS: INR-International Normal Ratio 1.1; Prothrombin Time 14.5 sec (12.0-14.7)
[2024-10-24 17:39] LABS: ALT (SGPT) 27 U/L (8-55); AST (SGOT) 39 U/L (5-34); Alkaline Phosphatase 140 U/L (40-110); Anion Gap 13 mmol/L (10-20); BUN (Urea Nitrogen) 4 mg/dL (9.8-20.1); Bilirubin, Total 0.3 mg/dL (0.2-1.2); Calc. Creatinine Clearance 0 mL/min (70-130); Calcium 9.2 mg/dL (7.8-10.44); Carbon Dioxide 29 mmol/L (23-31); Chloride 102 mmol/L (98-107); Estimated GFR 78; Globulin 5.4 g/dL (2.4-3.5); Glucose 93 mg/dL (80-115); Potassium 2.7 mmol/L (3.5-5.1); Protein, Total 9.4 g/dL (5.8-8.1); Sodium 141 mmol/L (136-145)
[2024-10-24 17:46] LABS: Anisocytosis SLIGHT = 6-15 cells HPF (0-5); Eosinophils 4 % (0-10); Large Platelets 6.9 % (0-5); Lymphocytes 51 % (21-51); Monocytes 6 % (0-10); Neutrophil 32 % (42-75); Platelet Adequacy Comment Platelets Normal; Polychromasia SLIGHT = 2-3 cells HPF (0-2); Reactive Lymphocytes 7 % (0-10)
[2024-10-24 17:58] LABS: Troponin I 0.365 ng/mL (< 0.028)
[2024-10-24] MEDS ORDERED: Potassium Chloride 20 MEQ TAB ONE ×2 (19:05→19:07)
[2024-10-24] MEDS ORDERED: Enoxaparin 80 MG (0.8 mL) SYRINGE ONE (19:06)
[2024-10-24] MEDS ORDERED: Potassium Chloride 20 MEQ (100 mL) BAG ONE (19:07)
[2024-10-24] MEDS ORDERED: NS 0.9% w/ 20 MEQ KCL 1,000 ML ONE (19:09)
[2024-10-24] MEDS ORDERED: Acetaminophen 325 MG TAB PO PRN (19:29)
[2024-10-24 20:54] LABS: Magnesium 1.9 mg/dL (1.6-2.6)
[2024-10-24 21:04] VITALS: BMI 34.1
[2024-10-24 21:47] LABS: Hemoglobin A1c 5.1 % (4.0-6.0)
[2024-10-24] MEDS: Atorvastatin Calcium 40 MG TAB PO SCH (22:32)
[2024-10-24] MEDS: Amlodipine 5 MG TAB PO SCH (22:33)
[2024-10-24] MEDS: Primidone 250 MG TAB PO SCH (22:44)
[2024-10-24] MEDS: OXcarbazepine 300 MG TAB PO SCH (22:44)
[2024-10-24] MEDS: Lactated Ringer's 1,000 ML IV SCH (23:40)
[2024-10-25 04:57] LABS: #Basophils Less than 0.03 10x3/uL (0.0-0.2); %Basophils 0.5 % (0.0-1.0); %Eosinophils 7.7 % (0.0-10.0); %Lymphocytes 52.4 % (21.0-51.0); %Monocytes 8.7 % (0.0-10.0); %Neutrophils 30.5 % (42.0-75.0); Hemoglobin 11.3 g/dL (12.0-16.0); Mean Corpuscular HGB CONC 34.2 g/dL (32.0-36.0); Mean Corpuscular Hemoglobin 30.1 pg (27.0-31.0); Mean Corpuscular Volume 87.8 fL (78.0-98.0); Platelet Count 157 10x3/uL (130-400); Red Blood Cell (RBC) Count 3.76 mill/uL (4.20-5.40)
[2024-10-25 05:05] LABS: ALT (SGPT) 21 U/L (8-55); AST (SGOT) 29 U/L (5-34); Alkaline Phosphatase 104 U/L (40-110); Anion Gap 11 mmol/L (10-20); BUN (Urea Nitrogen) Less than 4 mg/dL (9.8-20.1); Bilirubin, Total 0.3 mg/dL (0.2-1.2); Calc. Creatinine Clearance 87 mL/min (70-130); Calcium 8.1 mg/dL (7.8-10.44); Carbon Dioxide 24 mmol/L (23-31); Cardiac Risk 2.5 (Less than 4.5); Chloride 109 mmol/L (98-107); Cholesterol 162 mg/dl (< 200 Desired); Estimated GFR 89; Globulin 4.1 g/dL (2.4-3.5); Glucose 87 mg/dL (80-115); HDL Cholesterol 65 mg/dL (>60 Neg Risk); LDL Cholesterol, Calculated 81 mg/dL; Potassium 3.1 mmol/L (3.5-5.1); Protein, Total 7.1 g/dL (5.8-8.1); Sodium 141 mmol/L (136-145); Triglycerides 82 mg/dL (Less than 150)
[2024-10-25 05:14] LABS: Amphetamine Not Detected (NotDetected); Barbiturates Screen Detected (NotDetected); Benzodiazepine Screen Not Detected (NotDetected); Cocaine Metabolite Screen Not Detected (NotDetected); Methadone Not Detected (NotDetected); Methamphetamine Not Detected (NotDetected); Opiate Screen Not Detected (NotDetected); Oxycodone Screen Not Detected (NotDetected); Phencyclidine (PCP) Not Detected (NotDetected); THC/Cannabinoid Screen Not Detected (NotDetected); Tricyclic Screen Not Detected (NotDetected)
[2024-10-25] MEDS: Potassium Chloride 20 MEQ in Premix 1 BAG IVPB SCH (09:02)
[2024-10-25] MEDS: Enoxaparin 40 MG (0.4 mL) SYRINGE SC SCH (09:10)
[2024-10-25 11:07] LABS: Syphilis Antibody Nonreactive (Nonreactive); Syphilis Antibody Index 0.37 S/CO (<1.00 Non-Reactive)
[2024-10-25 13:18] LABS: Troponin I 0.296 ng/mL (< 0.028)
[2024-10-25 14:01] LABS: ANA Symphony (Qualitative) Negative (Negative); ANA Symphony (Quantitative) 0.3 Ratio (< 0.7 Negative); dsDNA IgG Antibody Less than 0.6 IU/mL (<10 Negative)
[2024-10-26 04:02] LABS: #Basophils 0.04 10x3/uL (0.0-0.2); %Eosinophils 7.7 % (0.0-10.0); %Lymphocytes 53.8 % (21.0-51.0); %Monocytes 8.6 % (0.0-10.0); %Neutrophils 28.9 % (42.0-75.0); Hematocrit 31.6 % (36.0-47.0); Hemoglobin 10.8 g/dL (12.0-16.0); Mean Corpuscular HGB CONC 34.2 g/dL (32.0-36.0); Mean Corpuscular Hemoglobin 30.3 pg (27.0-31.0); Mean Corpuscular Volume 88.5 fL (78.0-98.0); Mean Platelet Volume 11.7 fL (7.4-10.4); Platelet Count 152 10x3/uL (130-400); Red Blood Cell (RBC) Count 3.57 mill/uL (4.20-5.40)
[2024-10-26 04:19] LABS: ALT (SGPT) 18 U/L (8-55); AST (SGOT) 25 U/L (5-34); Albumin 2.9 g/dL (3.4-4.8); Alkaline Phosphatase 104 U/L (40-110); Anion Gap 11 mmol/L (10-20); BUN (Urea Nitrogen) Less than 4 mg/dL (9.8-20.1); Bilirubin, Total 0.3 mg/dL (0.2-1.2); Calc. Creatinine Clearance 97 mL/min (70-130); Carbon Dioxide 24 mmol/L (23-31); Chloride 110 mmol/L (98-107); Estimated GFR 96; Globulin 3.9 g/dL (2.4-3.5); Glucose 84 mg/dL (80-115); Potassium 3.2 mmol/L (3.5-5.1); Protein, Total 6.8 g/dL (5.8-8.1); Sodium 142 mmol/L (136-145)
[2024-10-26] MEDS: Potassium Chloride 20 MEQ TAB PO SCH (10:18)
[2024-10-26 13:28] LABS: Magnesium 1.6 mg/dL (1.6-2.6)
[2024-10-26 16:42] VITALS: TEMP 98.2
[2024-10-26] MEDS: Primidone 250 MG TAB PO SCH (20:51)
[2024-10-26 20:52] VITALS: BP 159/63
[2024-10-27] MEDS ORDERED: Clopidogrel Bisulfate 75 MG TAB PO SCH (09:00)
[2024-10-30 07:13] LABS: Primidone 11.9 ug/mL (5.0-12.0)
== END 2024-10-27 12:35 | DRG 66 ==
LOC: ERS 16:44 → 2NO 18:43 → UNDOADMIN 18:44
PROVIDERS: ADMIT Family Medicine; ATTEND Family Medicine
DX: I63.81 Other cerebral infarction due to occlusion or stenosis of small artery (principal); G40.909 Epilepsy, unspecified, not intractable, without status epilepticus; R47.1 Dysarthria and anarthria; E87.6 Hypokalemia; R53.81 Other malaise; I10 Essential (primary) hypertension; R29.702 NIHSS score 2; Z88.8 Allergy status to other drugs, medicaments and biological substances; Z79.899 Other long term (current) drug therapy; Z85.3 Personal history of malignant neoplasm of breast; Z92.21 Personal history of antineoplastic chemotherapy; Z92.3 Personal history of irradiation; Z90.49 Acquired absence of other specified parts of digestive tract
CPT/HCPCS: 36415; 36416; 70450; 70496; 70498; 70551; 71045; 80053; 80061; 80183; 80184; 80188; 80306; 80307; 83036; 83090; 83735; 83930; 84146; 84443; 84484; 85025; 85610; 85730; 86038; 86141; 86225; 86780; 93005; 93306; 94760; J1650; J3480; J7120; Q9967

== ENCOUNTER 2024-11-19 21:35 | Emergency (ER) | payer OTHER | END 2024-11-19 21:55 | disposition home or self-care (01) | LOC: ERS 21:35 | DX: Z76.0 Encounter for issue of repeat prescription (principal); I10 Essential (primary) hypertension; Z79.899 Other long term (current) drug therapy; Z87.891 Personal history of nicotine dependence | CPT/HCPCS: 99281 ==

== ENCOUNTER 2024-12-16 11:20 | Outpatient (CLI) | payer MEDICARE, OTHER | END 2024-12-16 11:21 | disposition home or self-care (01) | LOC: BICMAMMO 11:20 | PROVIDERS: ATTEND Family Medicine | DX: Z12.31 Encounter for screening mammogram for malignant neoplasm of breast (principal); Z91.89 Other specified personal risk factors, not elsewhere classified; Z90.12 Acquired absence of left breast and nipple | CPT/HCPCS: 77063; 77067 ==